=== PATIENT | female | born 1935 | race Caucasian/White ===

== ENCOUNTER 2017-08-18 21:17 | Emergency (ER) | payer OTHER ==
[~2017-08-18] VITALS: Ht 152.4 cm; Wt 74.8 kg
[2017-08-18] MEDS ORDERED: IBUPROFEN TAB 600MG (22:16)
[2017-08-18] MEDS ORDERED: AMLODIPINE TAB 5MG (22:16)
[2017-08-18] MEDS ORDERED: METFORMIN 850 MG (22:16)
[2017-08-18] MEDS ORDERED: GABAPENTIN CAP 300MG (22:16)
[2017-08-18] MEDS ORDERED: GLIMEPIRIDE 2 MG (22:16)
[2017-08-18] MEDS ORDERED: PIOGLITAZONE 15 MG (22:16)
--- NOTE | 2017-08-18 22:45 | NUR ---
at pt bedside for MSE
[2017-08-18] MEDS ORDERED: HYDROCODONE/APAP 5-325MG TABLET PO ONE (23:00)
[2017-08-18] MEDS ORDERED: HYDROCODONE/APAP 5-325MG TABLET ONE (23:26)
--- NOTE | 2017-08-18 23:40 | NUR ---
Pt offered a wheelchair assistance. Pts son declined, but will ambulate w/ own cane
--- NOTE | 2017-08-18 23:45 | NUR ---
Pt ambulated out of ER w/ steady gait. Son assisting. No distess noted, VSS
--- NOTE | 2017-08-18 23:45 | NUR ---
Patient discharged to home in stable conditon. Written and verbal after care instructions given. Patient and son verbalize understanding of instructions.
[2017-08-18 23:53] VITALS: BP 153/78
== END 2017-08-18 23:58 | disposition home or self-care (01) ==
LOC: ER 21:18
DX: S92.501A Displaced unspecified fracture of right lesser toe(s), initial encounter for closed fracture (principal); E11.9 Type 2 diabetes mellitus without complications; M19.90 Unspecified osteoarthritis, unspecified site; Z79.84 Long term (current) use of oral hypoglycemic drugs; W18.30XA Fall on same level, unspecified, initial encounter; Y93.89 Activity, other specified; Y92.89 Other specified places as the place of occurrence of the external cause; Y99.8 Other external cause status
CPT/HCPCS: 73630; A4663

== ENCOUNTER 2017-10-22 20:22 | Emergency (ER) | payer OTHER ==
[~2017-10-22] VITALS: Ht 157.5 cm; Wt 77.1 kg
[~2017-10-22 20:22] MED LIST: AMLODIPINE TAB 5MG; GABAPENTIN CAP 300MG; GLIMEPIRIDE 2 MG; IBUPROFEN TAB 600MG; METFORMIN 850 MG; PIOGLITAZONE 15 MG
[2017-10-22] MEDS ORDERED: CLINDAMYCIN 300 MG (20:39)
[2017-10-22] MEDS ORDERED: IV NORMAL SALINE 500 ML BAG IV ONE (21:00)
--- NOTE | 2017-10-22 21:16 | NUR ---
PATIENT OUT OF UNIT FOR CT SCAN VIA GURNY
[2017-10-22 21:25] LABS: BASOPHILS # (AUTO) 0.1 K/uL (0.0-8.0); BASOPHILS % (AUTO) 1.5 % (0.0-2.0); CARBON DIOXIDE 24 mmol/L (21-32); CHLORIDE 105 mmol/L (98-107); EOSINOPHILS # (AUTO) 0.2 K/uL (0.0-0.7); GLUCOSE 100 mg/dL (74-106); HEMATOCRIT 32.7 % (31.2-41.9); LYMPHOCYTES # (AUTO) 1.6 K/uL (20.0-40.0); LYMPHOCYTES % (AUTO) 20.9 % (20.5-51.5); MEAN CORPUSCULAR HEMOGLOBIN 28.4 uug (24.7-32.8); MEAN CORPUSCULAR HGB CONC 34 g/dL (32.3-35.6); MEAN CORPUSCULAR VOLUME 84.5 fL (75.5-95.3); MONOCYTES # (AUTO) 0.6 K/uL (2.0-10.0); MONOCYTES % (AUTO) 7.3 % (0.0-11.0); NEUTROPHILS # (AUTO) 5.2 K/uL (1.8-8.9); NEUTROPHILS % (AUTO) 68.3 % (38.5-71.5); PLATELET COUNT (AUTO) 424 K/uL (179-408); POTASSIUM 4.8 mmol/L (3.5-5.1); RED BLOOD CELL COUNT(AUTO) 3.87 MIL/uL (3.63-4.92); UREA NITROGEN, BLOOD 31 mg/dL (7-18); WHITE BLOOD COUNT (AUTO) 7.6 K/uL (3.8-11.8)
[2017-10-22 21:31] LABS: ALANINE AMINOTRANSFERASE 17 U/L (14-59); ALKALINE PHOSPHATASE 74 U/L (50-136); ASPARTATE AMINOTRANSFERASE 14 U/L (15-37); BILIRUBIN,DIRECT 0.1 mg/dL (0.0-0.2); BILIRUBIN,TOTAL 0.3 mg/dL (0.2-1.0); LIPASE 233 U/L (73-393); TOTAL PROTEIN, SERUM 7.6 g/dL (6.4-8.2)
--- NOTE | 2017-10-22 21:33 | NUR ---
PATIENT BACK FROM CT SCAN WITH NO DISTRESS NOTED
[2017-10-22] MEDS ORDERED: MAGNESIUM HYDROXIDE 30 ML LIQUID UDC PO ONE (22:15)
[2017-10-22] MEDS ORDERED: MAGNESIUM CITRATE 296 ML BOTTLE PO ONE (22:15)
[2017-10-22] MEDS ORDERED: MAGNESIUM CITRATE 296 ML BOTTLE ONE (22:16)
[2017-10-22] MEDS ORDERED: MAGNESIUM HYDROXIDE 30 ML LIQUID UDC ONE (22:16)
[2017-10-22 22:24] VITALS: BP 146/95
--- NOTE | 2017-10-22 22:24 | NUR ---
IV removed. Catheter intact and site benign. Pressure and 4x4 gauze applied to site. No bleeding noted.
--- NOTE | 2017-10-22 22:26 | NUR ---
Patient discharged to home in stable conditon WITH SON TAKING PATIENT HOME. Written and verbal after care instructions given. Patient verbalizes understanding of instructions. WALKED OUT OF ER WITH NO DISTRESS NOTED
== END 2017-10-22 22:27 | disposition home or self-care (01) ==
LOC: ER 20:32
DX: K59.00 Constipation, unspecified (principal); E11.9 Type 2 diabetes mellitus without complications; Z79.1 Long term (current) use of non-steroidal anti-inflammatories (NSAID); Z79.84 Long term (current) use of oral hypoglycemic drugs; Z79.2 Long term (current) use of antibiotics; Z79.899 Other long term (current) drug therapy
CPT/HCPCS: 36415; 70030-TC; 71045; 83690; 85025; 85730; 93005; A4663; J7030

== ENCOUNTER 2017-12-02 10:03 | Inpatient (IN) | payer OTHER ==
[~2017-12-02] VITALS: Ht 162.6 cm; Wt 71.7 kg
[~2017-12-02 10:03] MED LIST changes: +CLINDAMYCIN 300 MG
--- NOTE | 2017-12-02 10:20 | NUR ---
Dr Rabago at the bedside for MSE.
[2017-12-02] MEDS ORDERED: ONDANSETRON 4 MG/2 ML VIAL IV ONE (10:30)
[2017-12-02] MEDS ORDERED: IV NORMAL SALINE 1000 ML BAG IV ONE (10:30)
[2017-12-02] MEDS ORDERED: MECLIZINE HCL 25 MG TABLET PO ONE (10:30)
[2017-12-02 10:47] LABS: BASOPHILS # (AUTO) 0.1 K/uL (0.0-8.0); EOSINOPHILS # (AUTO) 0.1 K/uL (0.0-0.7); EOSINOPHILS % (AUTO) 1.1 % (0.0-7.0); HEMATOCRIT 34.8 % (31.2-41.9); HEMOGLOBIN 11.5 g/dL (10.9-14.3); MEAN CORPUSCULAR HGB CONC 33 g/dL (32.3-35.6); MEAN CORPUSCULAR VOLUME 84.7 fL (75.5-95.3); MONOCYTES # (AUTO) 0.5 K/uL (2.0-10.0); MONOCYTES % (AUTO) 5.5 % (0.0-11.0); NEUTROPHILS # (AUTO) 7.5 K/uL (1.8-8.9); NEUTROPHILS % (AUTO) 81.4 % (38.5-71.5); PLATELET COUNT (AUTO) 423 K/uL (179-408); RED BLOOD CELL COUNT(AUTO) 4.11 MIL/uL (3.63-4.92); WHITE BLOOD COUNT (AUTO) 9.2 K/uL (3.8-11.8)
[2017-12-02] MEDS ORDERED: ONDANSETRON 4 MG/2 ML VIAL ONE (10:47)
[2017-12-02] MEDS ORDERED: MECLIZINE HCL 25 MG TABLET ONE (10:47)
[2017-12-02] MEDS ORDERED: ACETAMINOPHEN ES 500 MG TABLET ONE (10:55)
[2017-12-02 10:58] LABS: CARBON DIOXIDE 21 mmol/L (21-32); CHLORIDE 104 mmol/L (98-107); CREATININE 1.3 mg/dL (0.6-1.3); GLUCOSE 229 mg/dL (74-106); POTASSIUM 4.4 mmol/L (3.5-5.1); UREA NITROGEN, BLOOD 35 mg/dL (7-18)
[2017-12-02] MEDS ORDERED: ACETAMINOPHEN ES 500 MG TABLET PO ONE (11:00)
[2017-12-02 11:03] LABS: ALANINE AMINOTRANSFERASE 15 U/L (14-59); ALKALINE PHOSPHATASE 73 U/L (50-136); ASPARTATE AMINOTRANSFERASE 14 U/L (15-37); BILIRUBIN,DIRECT 0.1 mg/dL (0.0-0.2); BILIRUBIN,TOTAL 0.3 mg/dL (0.2-1.0); TOTAL PROTEIN, SERUM 7.1 g/dL (6.4-8.2)
--- NOTE | 2017-12-02 11:06 | NUR ---
Pt out of ER for Ct.
[2017-12-02 11:53] LABS: *BILIRUBIN,URIN NEGATIVE (NEGATIVE); *BLOOD, URINE NEGATIVE (NEGATIVE); *CLARITY,URINE CLEAR (CLEAR); *COLOR,URINE YELLOW (YELLOW); *KETONES,URINE NEGATIVE (NEGATIVE); *PROTEIN,URINE 1+ (NEGATIVE); *UROBILINOGEN,URINE 0.2 E.U./dl (NORMAL); LEUKOCYTE ESTERASE ,URINE NEGATIVE (NEGATIVE); NITRITE, URINE NEGATIVE (NEGATIVE); PH,URINE 5.5 (5.0-8.0); UGLUCOSE NEGATIVE (NEGATIVE)
[2017-12-02 12:12] LABS: RBC,URINE 0-3 /HPF (0-3)
[2017-12-02 12:13] LABS: BACTERIA,URINE NONE SEEN /HPF (NONE SEEN); SQUAMOUS EPITHELIAL CELL,UR FEW /HPF (NONE SEEN); TRANSITIONAL EPI CELLS,URINE FEW /LPF (NONE SEEN)
[2017-12-02] MEDS ORDERED: ASPIRIN 325 MG TABLET PO ONE (12:15)
[2017-12-02] MEDS ORDERED: IBUP-1955 PO (12:18)
[2017-12-02] MEDS ORDERED: FURO-152 PO (12:18)
[2017-12-02] MEDS ORDERED: AMLO5TAB2 PO (12:18)
[2017-12-02] MEDS ORDERED: DOCU100C36 PO (12:18)
[2017-12-02] MEDS ORDERED: GABA-534 PO (12:18)
[2017-12-02] MEDS ORDERED: HYDR-3980 PO (12:18)
[2017-12-02] MEDS ORDERED: METF850T2 PO (12:18)
[2017-12-02] MEDS ORDERED: ASPIRIN 325 MG TABLET ONE (12:37)
[2017-12-02] MEDS ORDERED: IV NS 1000 ML 1,000 ML IV PRN (14:40)
[2017-12-02] MEDS ORDERED: HYDROCODONE/APAP 5-325MG TABLET PO PRN (14:45)
[2017-12-02] MEDS ORDERED: ACETAMINOPHEN 325 MG TABLET PO PRN (14:45)
[2017-12-02] MEDS ORDERED: TEMAZEPAM 15 MG CAPSULE PO PRN (14:45)
[2017-12-02] MEDS ORDERED: MAGNESIUM HYDROXIDE 30 ML LIQUID UDC PO PRN (14:45)
[2017-12-02] MEDS ORDERED: ONDANSETRON 4 MG/2 ML VIAL IV PRN (14:45)
--- NOTE | 2017-12-02 14:48 | NUR ---
PT PULLED LT AC IV LINE, NO ACUTE BLEEDING NOTED. START A NEW SALINE LOCK ON RT WRIST.
--- NOTE | 2017-12-02 15:00 | NUR ---
Received report from ER nurse
--- NOTE | 2017-12-02 15:15 | NUR ---
Received pt from Er via jw, accompanied by VAT PACKER and her son. No apparent s/s of pain, distress, discomfort or SOB.
[2017-12-02 15:36] VITALS: BP 163/60
--- NOTE | 2017-12-02 16:00 | NUR ---
Initial general questions and initial physical assessment done with her son, Anthony by her bedside. Pt is Telugu speaking, states no pain according to her son, no immediate s/s of pain, distress, discomfort of SOB. Son states that pt is hungry and has not eaten since this morning.
[2017-12-02] MEDS ORDERED: MECLIZINE HCL 25 MG TABLET PO PRN (17:30)
[2017-12-02] MEDS ORDERED: DEXTROSE 50% 50 ML DISP.SYRIN IV PRN (17:45)
--- NOTE | 2017-12-02 19:30 | NUR ---
Received patient sleeping but easily arousable when name called. Requested to use the BR, hand held assist to the BR. No complaint presented. Continue care as planned.
[2017-12-02 20:00] VITALS: BP 104/59
[2017-12-02] MEDS: BLOOD SUGAR DIAGNOSTIC 1 EACH STRIP VI SCH (20:59)
[2017-12-02] MEDS: INSULIN REGULAR, HUMAN 300 UNIT/3 ML VIAL SQ PRN (21:00)
--- NOTE | 2017-12-02 21:01 | NUR ---
Son Anthony at bedside. Answered all questions he had and pleased with the response.
[2017-12-03] VITALS: BP 120/60
[2017-12-03 04:00] VITALS: BP 128/68
[2017-12-03] MEDS: BLOOD SUGAR DIAGNOSTIC 1 EACH STRIP VI SCH ×4 (06:02→21:54)
[2017-12-03] MEDS: PANTOPRAZOLE SODIUM 40 MG TABLET.DR PO SCH (06:03)
--- NOTE | 2017-12-03 06:38 | NUR ---
Shift end report: VS stable. Slept well. Assisted to the BR for elimination. No complaint presented. All needs attended and met. Continue current plan of care.
[2017-12-03 07:10] LABS: BASOPHILS # (AUTO) 0.1 K/uL (0.0-8.0); BASOPHILS % (AUTO) 0.6 % (0.0-2.0); EOSINOPHILS % (AUTO) 0.4 % (0.0-7.0); HEMATOCRIT 33.9 % (31.2-41.9); HEMOGLOBIN 11.2 g/dL (10.9-14.3); LYMPHOCYTES # (AUTO) 1.1 K/uL (20.0-40.0); LYMPHOCYTES % (AUTO) 10.5 % (20.5-51.5); MEAN CORPUSCULAR HEMOGLOBIN 27.7 uug (24.7-32.8); MEAN CORPUSCULAR HGB CONC 33 g/dL (32.3-35.6); MEAN CORPUSCULAR VOLUME 84.2 fL (75.5-95.3); MONOCYTES # (AUTO) 0.5 K/uL (2.0-10.0); MONOCYTES % (AUTO) 4.9 % (0.0-11.0); NEUTROPHILS # (AUTO) 8.6 K/uL (1.8-8.9); NEUTROPHILS % (AUTO) 83.6 % (38.5-71.5); PLATELET COUNT (AUTO) 376 K/uL (179-408); RED BLOOD CELL COUNT(AUTO) 4.03 MIL/uL (3.63-4.92); WHITE BLOOD COUNT (AUTO) 10.3 K/uL (3.8-11.8)
[2017-12-03 07:24] LABS: CARBON DIOXIDE 21 mmol/L (21-32); CHLORIDE 107 mmol/L (98-107); CHOLESTEROL 174 mg/dL (<200); CREATININE 0.9 mg/dL (0.6-1.3); GLUCOSE 76 mg/dL (74-106); HDL CHOLESTEROL 62 mg/dL (40-60); MAGNESIUM 1.7 mg/dL (1.8-2.4); POTASSIUM 5.1 mmol/L (3.5-5.1); TRIGLYCERIDES 76 MG/DL (30-150); UREA NITROGEN, BLOOD 27 mg/dL (7-18)
--- NOTE | 2017-12-03 08:30 | NUR ---
SEEN AND EXAMINED BY [employer] BANK OFFICER WITH NEW ORDERS. PT IS AWAKE AND ALERT. YI SPEAKING ONLY. ABLE TO AMBULATE SLOWLY TO BATHROOM USING HER CANE. DENIES DIZZINESS AT THIS TIME. NO C/O RAMIREZ.
--- NOTE | 2017-12-03 11:30 | NUR ---
PT AMBULATED WITH PT USING A WALKER. TOLERATED WELL.
[2017-12-03 11:49] VITALS: BP 148/59
[2017-12-03] MEDS ORDERED: MAGNESIUM OXIDE 400 MG TABLET PO ONE (12:15)
--- NOTE | 2017-12-03 13:00 | NUR ---
SEEN AND EXAMINED BY DR SUAREZ WITH NEW ORDER.
[2017-12-03 15:39] VITALS: BP 157/63
--- NOTE | 2017-12-03 17:00 | NUR ---
FAMILY AT THE BEDSIDE. PT EATING GOOD. MEDICATED WITH STOOL SOFTER FOR C/O CONSTIPATION ORDERED.
[2017-12-03] MEDS: DOCUSATE SODIUM 100 MG CAPSULE PO SCH (18:03)
[2017-12-03] MEDS: ASPIRIN EC 81 MG TABLET.DR PO SCH (18:03)
[2017-12-03] MEDS: INSULIN REGULAR, HUMAN 300 UNIT/3 ML VIAL SQ PRN (18:07)
--- NOTE | 2017-12-03 19:50 | NUR ---
RECEIVED PATIENT IN BED, ALERT NO SOB NO CHEST PAIN NOTED, ASSISTED WITH TOILETING, CONT TO MONITOR.
[2017-12-03 20:23] VITALS: BP 142/55
[2017-12-03] MEDS: AMLODIPINE 5 MG TABLET PO SCH (21:59)
[2017-12-04] VITALS: BP 130/63
[2017-12-04 04:00] VITALS: BP 160/70
[2017-12-04] MEDS: BLOOD SUGAR DIAGNOSTIC 1 EACH STRIP VI SCH ×4 (06:19→20:24)
[2017-12-04] MEDS: PANTOPRAZOLE SODIUM 40 MG TABLET.DR PO SCH (06:25)
--- NOTE | 2017-12-04 06:30 | NUR ---
PATIENT SLEPT MOST OF THE NIGHT, NO COMPLAIN OF PAIN, NO SOB NO CHEST PAIN, RYTHM SINUS RYTHM, ASSITED WITH TOILETING, CALL LIGHT WITHIN REACH, BLOOD SUGAR 55, ASYMPTOMATIC, GIVEN 1/2 CUP OF ORANGE JUICE, TURN AND REPOSITION.
[2017-12-04 06:34] LABS: CARBON DIOXIDE 22 mmol/L (21-32); CHLORIDE 105 mmol/L (98-107); CREATININE 0.9 mg/dL (0.6-1.3); GLUCOSE 79 mg/dL (74-106); MAGNESIUM 1.8 mg/dL (1.8-2.4); POTASSIUM 4.4 mmol/L (3.5-5.1); UREA NITROGEN, BLOOD 24 mg/dL (7-18)
[2017-12-04 06:43] LABS: RED BLOOD CELL COUNT(AUTO) 4.01 MIL/UL (4.2-5.4); WHITE BLOOD COUNT (AUTO) 10.2 K/UL (4.0-11.2)
[2017-12-04 06:44] LABS: HEMATOCRIT 34.1 % (37-47); HEMOGLOBIN 11.2 G/DL (12.0-16.0); MEAN CORPUSCULAR HEMOGLOBIN 27.9 UUG (27.0-31.0); MEAN CORPUSCULAR HGB CONC 33 g/dL (32.0-37.0); PLATELET COUNT (AUTO) 378 K/UL (150-450)
[2017-12-04 06:45] LABS: BASOPHILS # (AUTO) 0.1 K/uL (0.0-8.0); EOSINOPHILS # (AUTO) 0.2 K/uL (0.0-0.7); EOSINOPHILS % (AUTO) 1.8 % (0.0-7.0); LYMPHOCYTES # (AUTO) 1.5 K/UL (0.8-4.8); LYMPHOCYTES % (AUTO) 14.7 % (20.5-51.5); MONOCYTES # (AUTO) 0.5 K/UL (0.1-1.30); NEUTROPHILS # (AUTO) 7.9 K/UL (1.8-8.9); NEUTROPHILS % (AUTO) 77.5 % (38.5-71.5)
--- NOTE | 2017-12-04 08:00 | NUR ---
AWAKE COOPERATE SOME FORGETFUL BUT ABLE TO FOLLOW SIMPLE DIRECTION WELL NO SOB OR PAIN CALL SCHMIDT IN REACH AND BED ALARM ON
[2017-12-04] MEDS: DOCUSATE SODIUM 100 MG CAPSULE PO SCH ×3 (08:31→16:33)
[2017-12-04] MEDS: AMLODIPINE 5 MG TABLET PO SCH (08:32)
[2017-12-04] MEDS: GABAPENTIN 300 MG CAPSULE PO SCH ×2 (08:33→16:33)
[2017-12-04] MEDS: ASPIRIN EC 81 MG TABLET.DR PO SCH (08:36)
--- NOTE | 2017-12-04 10:00 | NUR ---
FAMILY AT BED SIDE C/O OF CONSTIPATION MOM PO GIVEN ORDER
[2017-12-04 11:00] VITALS: BP 160/75
[2017-12-04] MEDS ORDERED: METOPROLOL TARTRATE 25 MG TABLET PO SCH (11:30)
[2017-12-04] MEDS ORDERED: LOSARTAN POTASSIUM 25 MG TABLET PO SCH (12:30)
[2017-12-04 15:05] VITALS: BP 140/68
[2017-12-04] MEDS: INSULIN REGULAR, HUMAN 300 UNIT/3 ML VIAL SQ PRN ×2 (16:36→20:26)
--- NOTE | 2017-12-04 17:00 | NUR ---
PATIENT WILL D/C TO [facility]ANCE TODAY PER DRILL SETUP OPERATOR DR VALENZUELA WAS CALL FOR ORDER ,PATIENT C/O OF CONSTIPATION MOM DOES NOT WORKING AND MESSAGE LEFT
--- NOTE | 2017-12-04 17:30 | NUR ---
HEMODYNAMIC STATUS STABLE ,PAIN UNDER CONTROL NO DIZZINESS AT THIS TIME EAT WELL SAFETY MEASURE PROVIDED CALL LIGHT IN REACH AND BED ALARM ON
--- NOTE | 2017-12-04 18:00 | NUR ---
HAVE 1 SOFT BM THIS EVENING STATE FEEL BETTER
[2017-12-04] MEDS ORDERED: LOSA25TA3 PO (18:45)
[2017-12-04] MEDS ORDERED: HYDR-3326 PO (18:45)
[2017-12-04] MEDS ORDERED: ASPI-618 PO (18:45)
[2017-12-04] MEDS ORDERED: ACET325T53 PO (18:45)
[2017-12-04] MEDS ORDERED: MECL-102 PO (18:45)
[2017-12-04] MEDS ORDERED: MULT1TAB73 PO (18:45)
[2017-12-04] MEDS ORDERED: MAGN400O6 PO (18:45)
[2017-12-04] MEDS ORDERED: PANT40TA2 PO (18:45)
[2017-12-04] MEDS ORDERED: SIMV10TA2 PO (18:57)
--- NOTE | 2017-12-04 19:00 | NUR ---
RECEIVED PATIENT IN BED, ALERT ORIENTED, SPEAK AZERI, BUT UNDERSTAND BASIC HUNGARIAN. NO COMPLAIN OF PAIN NOR DISCOMFORT, ASSISTED WITH TOILETING, PREPARED PATIENT FOR DISCHARGE, PATIENT HAS HER OWN TEETH, NO DENTURES. CONT TO MONITOR.
[2017-12-04 20:00] VITALS: BP 156/72
--- NOTE | 2017-12-04 22:56 | NUR ---
[facility]ETH [facility] CALLED, AND SAID THAT PATIENT WILL BE GOING TO [facility], SHE ALSO MENTIONED THAT SHE GOING TO NOTIFY PATIENT SON'S THAT PATIENT PATIENT IS GOING TO [facility]. CALLED [facility] AND SPOKE TO BOBBY HENAO AND GAVE REPORT.
--- NOTE | 2017-12-04 23:03 | NUR ---
PLACE A CALL TO PATIENT SON RUBEN BUT NO ANSWER, [facility] CALL BACK NUMBER.
--- NOTE | 2017-12-04 23:06 | NUR ---
BETH FROM [facility] SAID THAT [facility] WILL TRANSPORT PATIENT TO [facility].
--- NOTE | 2017-12-05 00:30 | NUR ---
PATIENT WAS PICKED UP BY [facility], GAVE REPORT AND PAPER WORKS, PATIENT TOOK ALL HER BELONGINGS. PATIENT IN FAIR AND STABLE CONDITION.
== END 2017-12-05 00:30 | DRG 102 ==
LOC: ER 10:03 → TELE 14:26 → MED 12-04 17:55
PROVIDERS: ADMIT Nurse Practitioner Acute Care; ATTEND Nurse Practitioner Acute Care
DX: F07.81 Postconcussional syndrome (principal); N17.0 Acute kidney failure with tubular necrosis; E44.0 Moderate protein-calorie malnutrition; M48.02 Spinal stenosis, cervical region; E11.42 Type 2 diabetes mellitus with diabetic polyneuropathy; E83.42 Hypomagnesemia; G30.9 Alzheimer's disease, unspecified; F02.80 Dementia in other diseases classified elsewhere, unspecified severity, without behavioral disturbance, psychotic disturbance, mood disturbance, and anxiety; E78.5 Hyperlipidemia, unspecified; G44.309 Post-traumatic headache, unspecified, not intractable; T14.90XS Injury, unspecified, sequela; W18.30XS Fall on same level, unspecified, sequela; M50.30 Other cervical disc degeneration, unspecified cervical region; Z68.27 Body mass index [BMI] 27.0-27.9, adult; Z98.42 Cataract extraction status, left eye; E66.9 Obesity, unspecified; Z79.84 Long term (current) use of oral hypoglycemic drugs; M19.90 Unspecified osteoarthritis, unspecified site; I35.0 Nonrheumatic aortic (valve) stenosis; D32.9 Benign neoplasm of meninges, unspecified; I11.9 Hypertensive heart disease without heart failure; E05.90 Thyrotoxicosis, unspecified without thyrotoxic crisis or storm; Z96.653 Presence of artificial knee joint, bilateral; E86.0 Dehydration
CPT/HCPCS: 36415; 70030-TC; 70450; 71045; 72125; 83735; 84100; 84443; 85025; 85730; 92610; 93005; 93307; 97116; 97530; A4663; A9150; J1815; J2405; J7030; J8597

== ENCOUNTER 2018-01-15 18:24 | Emergency (ER) | payer OTHER ==
[~2018-01-15] VITALS: Ht 160 cm; Wt 78.0 kg
[~2018-01-15 18:24] MED LIST changes: +ACET325T53 PO; +AMLO5TAB2 PO; -AMLODIPINE TAB 5MG; +ASPI-618 PO; -CLINDAMYCIN 300 MG; +DOCU100C36 PO; +FURO-152 PO; +GABA-534 PO; -GABAPENTIN CAP 300MG; -GLIMEPIRIDE 2 MG; +HYDR-3326 PO; -IBUPROFEN TAB 600MG; +LOSA25TA3 PO; +MAGN400O6 PO; +MECL-102 PO; -METFORMIN 850 MG; +MULT1TAB73 PO; +PANT40TA2 PO; -PIOGLITAZONE 15 MG; +SIMV10TA2 PO
--- NOTE | 2018-01-15 19:08 | NUR ---
Patient discharged to home in stable conditon. Written and verbal after care instructions given. Patient verbalizes understanding of instructions.pt walks in steady gait. pt with son who is providing translation from upper sorbian into wolof
== END 2018-01-15 19:12 | disposition home or self-care (01) ==
LOC: ER 18:25
DX: M72.2 Plantar fascial fibromatosis (principal); E78.5 Hyperlipidemia, unspecified; E11.9 Type 2 diabetes mellitus without complications; Z79.891 Long term (current) use of opiate analgesic; Z79.82 Long term (current) use of aspirin; Z79.899 Other long term (current) drug therapy
CPT/HCPCS: A4663

== ENCOUNTER 2018-10-15 12:30 | Emergency (ER) | payer OTHER ==
[~2018-10-15] VITALS: Ht 160 cm; Wt 79.4 kg
[~2018-10-15 12:30] MED LIST changes: -AMLO5TAB2 PO; +AMLO5TAB9 PO
[2018-10-15] MEDS ORDERED: MECL12.582 PO (13:09)
[2018-10-15] MEDS ORDERED: LOSA25TA27 PO (13:09)
[2018-10-15] MEDS ORDERED: SIMV10TA2 PO (13:09)
[2018-10-15] MEDS ORDERED: BISA10SU8 RC (13:09)
[2018-10-15] MEDS ORDERED: ACET325T53 PO (13:09)
[2018-10-15] MEDS ORDERED: PANT40TA4 PO (13:09)
[2018-10-15] MEDS ORDERED: MULT1TAB73 PO (13:09)
--- NOTE | 2018-10-15 13:12 | NUR ---
PT IS IN ROOM #2B. DR UNDERWOOD EVALUATED THE PT.
[2018-10-15 13:39] LABS: BASOPHILS # (AUTO) 0.1 K/uL (0.0-8.0); BASOPHILS % (AUTO) 1.4 % (0.0-2.0); EOSINOPHILS # (AUTO) 0.1 K/uL (0.0-0.7); EOSINOPHILS % (AUTO) 0.8 % (0.0-7.0); HEMATOCRIT 34.8 % (31.2-41.9); HEMOGLOBIN 11.2 g/dL (10.9-14.3); LYMPHOCYTES # (AUTO) 1.3 K/uL (20.0-40.0); LYMPHOCYTES % (AUTO) 12.5 % (20.5-51.5); MEAN CORPUSCULAR HEMOGLOBIN 27.4 uug (24.7-32.8); MEAN CORPUSCULAR HGB CONC 32 g/dL (32.3-35.6); MEAN CORPUSCULAR VOLUME 84.8 fL (75.5-95.3); MONOCYTES # (AUTO) 0.6 K/uL (2.0-10.0); MONOCYTES % (AUTO) 5.4 % (0.0-11.0); NEUTROPHILS # (AUTO) 8.3 K/uL (1.8-8.9); NEUTROPHILS % (AUTO) 79.9 % (38.5-71.5); PLATELET COUNT (AUTO) 449 K/uL (179-408); RED BLOOD CELL COUNT(AUTO) 4.11 MIL/uL (3.63-4.92); WHITE BLOOD COUNT (AUTO) 10.4 K/uL (3.8-11.8)
[2018-10-15 13:49] LABS: CARBON DIOXIDE 19 mmol/L (21-32); CHLORIDE 105 mmol/L (98-107); CREATININE 1.2 mg/dL (0.6-1.3); GLUCOSE 167 mg/dL (74-106); POTASSIUM 4.6 mmol/L (3.5-5.1); UREA NITROGEN, BLOOD 32 mg/dL (7-18)
[2018-10-15 13:54] LABS: ALANINE AMINOTRANSFERASE 13 U/L (14-59); ALKALINE PHOSPHATASE 76 U/L (50-136); ASPARTATE AMINOTRANSFERASE 16 U/L (15-37); BILIRUBIN,DIRECT < 0.1 mg/dL (0.0-0.2); BILIRUBIN,TOTAL 0.2 mg/dL (0.2-1.0); LIPASE 170 U/L (73-393); TOTAL PROTEIN, SERUM 7.6 g/dL (6.4-8.2)
--- NOTE | 2018-10-15 15:12 | NUR ---
PT WAS D/C'd TO HOME. D/C INSTRUCTIONS GIVEN TO THE PT AND TO HER SON.
[2018-10-15 15:14] VITALS: BP 139/87
== END 2018-10-15 15:14 | disposition home or self-care (01) ==
LOC: ER 12:32
DX: K52.9 Noninfective gastroenteritis and colitis, unspecified (principal); K46.9 Unspecified abdominal hernia without obstruction or gangrene; K80.20 Calculus of gallbladder without cholecystitis without obstruction; R91.1 Solitary pulmonary nodule; E78.5 Hyperlipidemia, unspecified; E11.9 Type 2 diabetes mellitus without complications; Z79.899 Other long term (current) drug therapy; Z79.82 Long term (current) use of aspirin
CPT/HCPCS: 36415; 83690; 85025; A4663

== ENCOUNTER 2019-12-01 18:36 | Emergency (ER) | payer OTHER ==
[~2019-12-01] VITALS: Ht 160 cm; Wt 67.6 kg
[~2019-12-01 18:36] MED LIST changes: -ASPI-618 PO; +BISA10SU95 RC; -DOCU100C36 PO; -GABA-534 PO; -HYDR-3326 PO; +LOSA25TA27 PO; -LOSA25TA3 PO; -MAGN400O6 PO; -MECL-102 PO; +MECL-182 PO; -PANT40TA2 PO; +PANT40TA4 PO
[2019-12-01 19:10] LABS: BASOPHILS # (AUTO) 0.1 K/uL (0.0-8.0); BASOPHILS % (AUTO) 1.2 % (0.0-2.0); EOSINOPHILS # (AUTO) 0.1 K/uL (0.0-0.7); EOSINOPHILS % (AUTO) 1.2 % (0.0-7.0); HEMATOCRIT 32.1 % (31.2-41.9); HEMOGLOBIN 10.6 g/dL (10.9-14.3); LYMPHOCYTES # (AUTO) 1.5 K/uL (20.0-40.0); LYMPHOCYTES % (AUTO) 13.7 % (20.5-51.5); MEAN CORPUSCULAR HEMOGLOBIN 26.6 uug (24.7-32.8); MEAN CORPUSCULAR HGB CONC 33 g/dL (32.3-35.6); MEAN CORPUSCULAR VOLUME 80.6 fL (75.5-95.3); MONOCYTES # (AUTO) 0.7 K/uL (2.0-10.0); MONOCYTES % (AUTO) 6.5 % (0.0-11.0); NEUTROPHILS # (AUTO) 8.4 K/uL (1.8-8.9); NEUTROPHILS % (AUTO) 77.4 % (38.5-71.5); PLATELET COUNT (AUTO) 629 K/uL (179-408); RED BLOOD CELL COUNT(AUTO) 3.99 MIL/uL (3.63-4.92); WHITE BLOOD COUNT (AUTO) 10.9 K/uL (3.8-11.8)
--- NOTE | 2019-12-01 19:10 | NUR ---
REPORT TAKEN FROM DAY NURSE FABIO.
[2019-12-01 19:23] LABS: ALANINE AMINOTRANSFERASE 14 U/L (14-59); ALKALINE PHOSPHATASE 66 U/L (50-136); ASPARTATE AMINOTRANSFERASE 18 U/L (15-37); BILIRUBIN,DIRECT 0.1 mg/dL (0.0-0.2); BILIRUBIN,TOTAL 0.2 mg/dL (0.2-1.0); CARBON DIOXIDE 23 mmol/L (21-32); CHLORIDE 106 mmol/L (98-107); GLUCOSE 112 mg/dL (74-106); LIPASE 233 U/L (73-393); POTASSIUM 4.6 mmol/L (3.5-5.1); TOTAL PROTEIN, SERUM 7.5 g/dL (6.4-8.2); UREA NITROGEN, BLOOD 45 mg/dL (7-18)
[2019-12-01 21:20] VITALS: BP 135/71
--- NOTE | 2019-12-01 21:20 | NUR ---
Patient discharged to home in stable condition. Written and verbal after care instructions given. Patient and son verbalizes understanding of instructions. Stressed follow up or return to ER for worsening s/s.
== END 2019-12-01 21:20 | disposition home or self-care (01) ==
LOC: ER 18:39
DX: R10.10 Upper abdominal pain, unspecified (principal); K44.9 Diaphragmatic hernia without obstruction or gangrene; K80.20 Calculus of gallbladder without cholecystitis without obstruction; K57.30 Diverticulosis of large intestine without perforation or abscess without bleeding; K76.89 Other specified diseases of liver; N28.9 Disorder of kidney and ureter, unspecified; G30.9 Alzheimer's disease, unspecified; F02.80 Dementia in other diseases classified elsewhere, unspecified severity, without behavioral disturbance, psychotic disturbance, mood disturbance, and anxiety; E78.5 Hyperlipidemia, unspecified; Z96.653 Presence of artificial knee joint, bilateral; E11.40 Type 2 diabetes mellitus with diabetic neuropathy, unspecified; Z79.899 Other long term (current) drug therapy; I51.7 Cardiomegaly
CPT/HCPCS: 36415; 70030-TC; 71045; 83690; 85025; 85730; 93005; A4663

== ENCOUNTER 2019-12-11 13:34 | Emergency (ER) | payer OTHER ==
[~2019-12-11] VITALS: Ht 160 cm; Wt 68.0 kg
--- NOTE | 2019-12-11 13:44 | NUR ---
PT IS IN ROOM #2B. DR MORAN EVALUATED THEPT.
[2019-12-11] MEDS ORDERED: HYDROCODONE/APAP 10-325 MG TABLET PO ONE (14:00)
[2019-12-11] MEDS ORDERED: HYDROCODONE/APAP 10-325 MG TABLET ONE (14:10)
[2019-12-11 14:18] LABS: BASOPHILS # (AUTO) 0.1 K/uL (0.0-8.0); EOSINOPHILS # (AUTO) 0.1 K/uL (0.0-0.7); EOSINOPHILS % (AUTO) 1.2 % (0.0-7.0); HEMATOCRIT 31.9 % (31.2-41.9); HEMOGLOBIN 10.3 g/dL (10.9-14.3); LYMPHOCYTES # (AUTO) 1.1 K/uL (20.0-40.0); LYMPHOCYTES % (AUTO) 9.5 % (20.5-51.5); MEAN CORPUSCULAR HEMOGLOBIN 26.7 uug (24.7-32.8); MEAN CORPUSCULAR HGB CONC 32 g/dL (32.3-35.6); MEAN CORPUSCULAR VOLUME 82.6 fL (75.5-95.3); MONOCYTES # (AUTO) 0.7 K/uL (2.0-10.0); MONOCYTES % (AUTO) 5.6 % (0.0-11.0); NEUTROPHILS # (AUTO) 9.8 K/uL (1.8-8.9); NEUTROPHILS % (AUTO) 82.7 % (38.5-71.5); PLATELET COUNT (AUTO) 440 K/uL (179-408); RED BLOOD CELL COUNT(AUTO) 3.87 MIL/uL (3.63-4.92); WHITE BLOOD COUNT (AUTO) 11.8 K/uL (3.8-11.8)
[2019-12-11 14:22] LABS: CREATININE 1.2 mg/dL (0.6-1.3); POTASSIUM 4.6 mmol/L (3.5-5.1)
[2019-12-11 14:34] LABS: ALANINE AMINOTRANSFERASE 11 U/L (14-59); ALKALINE PHOSPHATASE 63 U/L (50-136); ASPARTATE AMINOTRANSFERASE 11 U/L (15-37); BILIRUBIN,DIRECT < 0.1 mg/dL (0.0-0.2); BILIRUBIN,TOTAL 0.2 mg/dL (0.2-1.0)
--- NOTE | 2019-12-11 15:08 | NUR ---
PT WAS D/C'd TO HOME. D/C INSTRUCTIONS GIVEN TO THE PT AND TO HER SON.
[2019-12-11 15:10] VITALS: BP 149/78
== END 2019-12-11 15:13 | disposition home or self-care (01) ==
LOC: ER 13:34
PROC: 2W3KX1Z Immobilization of Left Finger using Splint (ICD-10-PCS; principal; 2019-12-11)
DX: S69.92XA Unspecified injury of left wrist, hand and finger(s), initial encounter (principal); W18.30XA Fall on same level, unspecified, initial encounter; Y92.89 Other specified places as the place of occurrence of the external cause; R42 Dizziness and giddiness; I44.0 Atrioventricular block, first degree; Z96.653 Presence of artificial knee joint, bilateral; G30.9 Alzheimer's disease, unspecified; F02.80 Dementia in other diseases classified elsewhere, unspecified severity, without behavioral disturbance, psychotic disturbance, mood disturbance, and anxiety; E78.5 Hyperlipidemia, unspecified; E11.40 Type 2 diabetes mellitus with diabetic neuropathy, unspecified
CPT/HCPCS: 36415; 70030-TC; 71045; 73130; 85025; 93005; A4663

== ENCOUNTER 2020-02-05 12:03 | Inpatient (IN) | payer OTHER ==
[~2020-02-05] VITALS: Ht 157.5 cm; Wt 59.6 kg
[~2020-02-05 12:03] MED LIST changes: +MULT-594 PO; -MULT1TAB73 PO
--- NOTE | 2020-02-05 12:33 | NUR ---
at bedside to examine patient.
--- NOTE | 2020-02-05 12:35 | NUR ---
Per pt's son, none of the medication of pt changed from previous admit.
[2020-02-05 13:16] LABS: BASOPHILS # (AUTO) 0.1 K/uL (0.0-8.0); BASOPHILS % (AUTO) 1.1 % (0.0-2.0); EOSINOPHILS % (AUTO) 0.2 % (0.0-7.0); HEMATOCRIT 36.4 % (31.2-41.9); HEMOGLOBIN 11.6 g/dL (10.9-14.3); LYMPHOCYTES # (AUTO) 1.1 K/uL (20.0-40.0); LYMPHOCYTES % (AUTO) 18.6 % (20.5-51.5); MEAN CORPUSCULAR HEMOGLOBIN 26.2 uug (24.7-32.8); MEAN CORPUSCULAR HGB CONC 32 g/dL (32.3-35.6); MEAN CORPUSCULAR VOLUME 82.1 fL (75.5-95.3); MONOCYTES # (AUTO) 0.6 K/uL (2.0-10.0); MONOCYTES % (AUTO) 10.8 % (0.0-11.0); NEUTROPHILS # (AUTO) 4.1 K/uL (1.8-8.9); NEUTROPHILS % (AUTO) 69.3 % (38.5-71.5); PLATELET COUNT (AUTO) 334 K/uL (179-408); RED BLOOD CELL COUNT(AUTO) 4.43 MIL/uL (3.63-4.92); WHITE BLOOD COUNT (AUTO) 5.9 K/uL (3.8-11.8)
[2020-02-05 13:22] LABS: CARBON DIOXIDE 18 mmol/L (21-32); CHLORIDE 103 mmol/L (98-107); CREATININE 1.6 mg/dL (0.6-1.3); GLUCOSE 258 mg/dL (74-106); POTASSIUM 4.3 mmol/L (3.5-5.1); UREA NITROGEN, BLOOD 40 mg/dL (7-18)
[2020-02-05 13:39] LABS: ALANINE AMINOTRANSFERASE 16 U/L (14-59); ALKALINE PHOSPHATASE 64 U/L (50-136); ASPARTATE AMINOTRANSFERASE 24 U/L (15-37); BILIRUBIN,TOTAL 0.1 mg/dL (0.2-1.0); FERRITIN 108 ng/mL (8-252); LACTATE DEHYDROGENASE 223 U/L (81-234); TOTAL PROTEIN, SERUM 7.4 g/dL (6.4-8.2)
[2020-02-05] MEDS ORDERED: CEFTRIAXONE 1 G in IV DEXTROSE 5% 50 ML IV ONE (13:45)
[2020-02-05] MEDS ORDERED: IV NS 1000 ML 1,000 ML IV ONE (13:45)
[2020-02-05 13:48] LABS: LIPASE 320 U/L (73-393)
[2020-02-05] MEDS ORDERED: CEFTRIAXONE 1 G VIAL ONE (13:56)
[2020-02-05] MEDS ORDERED: CEFTRIAXONE /D5W 50ML IVPB **ER PYXIS IV ONE (13:57)
--- NOTE | 2020-02-05 14:49 | NUR ---
a call back from [facility] Dr. Jose Paredes to Dr. nino.
--- NOTE | 2020-02-05 15:27 | NUR ---
Patient will taken to room 314. AAOx1-3. vitals stable 149/74 hr 88 sat 98% on RA.
[2020-02-05] MEDS ORDERED: HYDROCODONE/APAP 5-325MG TABLET PO PRN (15:30)
[2020-02-05] MEDS ORDERED: BISACODYL 10 MG SUPP.RECT RC PRN (15:30)
[2020-02-05] MEDS ORDERED: ONDANSETRON 4 MG/2 ML VIAL IV PRN (15:30)
[2020-02-05] MEDS ORDERED: Z GUARD REMEDY PASTE 57 GM TUBE TOP PRN (15:30)
[2020-02-05] MEDS ORDERED: MAGNESIUM HYDROXIDE 30 ML LIQUID UDC PO PRN (15:30)
[2020-02-05] MEDS ORDERED: MECLIZINE HCL 12.5 MG TABLET PO PRN (15:30)
--- NOTE | 2020-02-05 15:40 | NUR ---
Admitted pt from ER, transferred via wheelchair. [place]-speaking. On RA with no SOB or distress noted at this time. Telemetry applied, SR on monitor. Reinserted IV on R FA 22g flushed and patent. Able to ambulate to bathroom with cane and assistance. Oriented to room, call light and phone within reach. Bed locked in lowest position with siderails 2x up. Will monitor
[2020-02-05 16:14] VITALS: BP 142/53
--- NOTE | 2020-02-05 19:20 | NUR ---
Received patient inside her room. AAOx1-2, Italian speaking only. In no acute distress. No signs and symptoms of pain or SOB. IV site noted to be out with minimal bleeding noted on IV site. Started a new IV site on left hand #22G. NSR on tele at 81/min. Safety measure initiated and call ventura within reached.
--- NOTE | 2020-02-05 19:45 | NUR ---
Call from lab/Ric Lactic Acid 2.9. MANAGER GARDEN Pogosyan into visit and made aware. No new order at this time.
[2020-02-05] MEDS: SIMVASTATIN 10 MG TABLET PO SCH (21:00)
[2020-02-05] MEDS: ZOLPIDEM 5 MG TABLET PO PRN (21:00)
--- NOTE | 2020-02-05 21:00 | NUR ---
Patient pulled out her IV line. Started new IV line on right hand #22G.
[2020-02-06] VITALS: BP 129/59
[2020-02-06 04:18] VITALS: BP 140/70
--- NOTE | 2020-02-06 06:21 | NUR ---
AAOx1-2. Slept well last night. In no acute distress. No signs and symptoms of pain or SOB. NSR on tele at 76/min. Droplet and contact precaution maintained. Safety measure maintained and call ventura within reached.
--- NOTE | 2020-02-06 07:00 | NUR ---
Patient pulled out IV again. Started new IV line on left AC #22G.
[2020-02-06] MEDS: PANTOPRAZOLE SODIUM 40 MG TABLET.DR PO SCH (08:18)
[2020-02-06] MEDS: MULTIVITAMINS,THERAPEUTIC TABLET PO SCH (08:18)
[2020-02-06 08:21] LABS: BASOPHILS % (AUTO) 0.8 % (0.0-2.0); EOSINOPHILS # (AUTO) 0.1 K/uL (0.0-0.7); EOSINOPHILS % (AUTO) 0.9 % (0.0-7.0); HEMATOCRIT 34.6 % (31.2-41.9); HEMOGLOBIN 11.1 g/dL (10.9-14.3); LYMPHOCYTES # (AUTO) 1.2 K/uL (20.0-40.0); LYMPHOCYTES % (AUTO) 20.8 % (20.5-51.5); MEAN CORPUSCULAR HEMOGLOBIN 26.3 uug (24.7-32.8); MEAN CORPUSCULAR HGB CONC 32 g/dL (32.3-35.6); MEAN CORPUSCULAR VOLUME 81.7 fL (75.5-95.3); MONOCYTES # (AUTO) 0.5 K/uL (2.0-10.0); MONOCYTES % (AUTO) 8.7 % (0.0-11.0); NEUTROPHILS # (AUTO) 3.9 K/uL (1.8-8.9); NEUTROPHILS % (AUTO) 68.8 % (38.5-71.5); RED BLOOD CELL COUNT(AUTO) 4.24 MIL/uL (3.63-4.92); WHITE BLOOD COUNT (AUTO) 5.7 K/uL (3.8-11.8)
[2020-02-06 08:28] LABS: CARBON DIOXIDE 20 mmol/L (21-32); CHLORIDE 106 mmol/L (98-107); CHOLESTEROL 187 mg/dL (<200); CREATININE 1.5 mg/dL (0.6-1.3); GLUCOSE 78 mg/dL (74-106); HDL CHOLESTEROL 42 mg/dL (40-60); MAGNESIUM 1.9 mg/dL (1.8-2.4); POTASSIUM 4.6 mmol/L (3.5-5.1); TRIGLYCERIDES 124 MG/DL (30-150); UREA NITROGEN, BLOOD 47 mg/dL (7-18)
[2020-02-06] MEDS: AMLODIPINE 5 MG TABLET PO SCH (08:35)
[2020-02-06] MEDS: LOSARTAN POTASSIUM 25 MG TABLET PO SCH (08:35)
[2020-02-06 08:59] LABS: PLATELET COUNT (AUTO) 322 K/uL (179-408)
[2020-02-06] MEDS ORDERED: FUROSEMIDE 40 MG/4 ML VIAL IV SCH (09:00)
--- NOTE | 2020-02-06 09:07 | NUR ---
received pt. resting in bed alert oriented swedish speaking. able to communicate with pt. pt. denies pain/ discomfort. pt. denies sob/ difficulty breathing. IV in L AC 22 gauge intact patent saline lock wrapped with kerlix. pt. on strict intake and output. safety measures in place. call light within reach. will continue to monitor pt.
[2020-02-06 11:45] VITALS: BP 143/63
--- NOTE | 2020-02-06 12:26 | NUR ---
pt. pulled out IV again. this is fourth IV inserted and removed. Instructed pt. before hand not to remove and I had son explain to her not to remove, unsuccessful.
[2020-02-06 15:11] VITALS: BP 126/59
--- NOTE | 2020-02-06 17:08 | NUR ---
pt. refusing vessel scrapper helper. Pt. has periods of confusion and takes off vessel scrapper helper.
--- NOTE | 2020-02-06 18:57 | NUR ---
Pt. resting in bed alert oriented x2 confused. Pt. removed IV. Pt. removed front desk monitor. Dr. Garcia aware. Stated he will see her tomorrow. walks to bathroom with assistance. safety measures in place. call light within reach. will endorse to pm nurse
[2020-02-06 20:30] VITALS: BP 161/63
--- NOTE | 2020-02-06 20:31 | NUR ---
Patient is removing Tele monitor. David Marte MOTORIZED SQUAD CAPTAIN was notified.
--- NOTE | 2020-02-06 21:00 | NUR ---
Patient was found sitting on the floor leaning against the wall. The cane was on the floor next to the patient. Patient was put back in bed and assessed for injuries. 1cm scrape was found on the left hand, cleansed and dressed with a sterile dressing. No other injuries were noted. Patient does not have signs of distress. Heel Seat Flap Stapler notified.
[2020-02-06] MEDS: SIMVASTATIN 10 MG TABLET PO SCH (21:31)
[2020-02-06] MEDS: ZOLPIDEM 5 MG TABLET PO PRN (21:32)
--- NOTE | 2020-02-06 22:26 | NUR ---
David Marte was notified of the unwitnessed fall, no new orders.
[2020-02-07 00:06] VITALS: BP 132/65
[2020-02-07 04:18] VITALS: BP 118/64
[2020-02-07 07:24] LABS: BASOPHILS % (AUTO) 0.8 % (0.0-2.0); EOSINOPHILS % (AUTO) 0.3 % (0.0-7.0); HEMATOCRIT 35.5 % (31.2-41.9); HEMOGLOBIN 11.9 g/dL (10.9-14.3); LYMPHOCYTES # (AUTO) 1.1 K/uL (20.0-40.0); LYMPHOCYTES % (AUTO) 23.8 % (20.5-51.5); MEAN CORPUSCULAR HEMOGLOBIN 26.9 uug (24.7-32.8); MEAN CORPUSCULAR HGB CONC 34 g/dL (32.3-35.6); MEAN CORPUSCULAR VOLUME 80.1 fL (75.5-95.3); MONOCYTES # (AUTO) 0.5 K/uL (2.0-10.0); MONOCYTES % (AUTO) 10.1 % (0.0-11.0); NEUTROPHILS # (AUTO) 3.1 K/uL (1.8-8.9); PLATELET COUNT (AUTO) 304 K/uL (179-408); RED BLOOD CELL COUNT(AUTO) 4.43 MIL/uL (3.63-4.92); WHITE BLOOD COUNT (AUTO) 4.8 K/uL (3.8-11.8)
[2020-02-07 07:43] LABS: CREATININE 1.3 mg/dL (0.6-1.3); POTASSIUM 4.3 mmol/L (3.5-5.1)
[2020-02-07 08:55] VITALS: BP 133/66
[2020-02-07] MEDS: PANTOPRAZOLE SODIUM 40 MG TABLET.DR PO SCH (08:55)
[2020-02-07] MEDS: MULTIVITAMINS,THERAPEUTIC TABLET PO SCH (08:56)
[2020-02-07] MEDS: LOSARTAN POTASSIUM 25 MG TABLET PO SCH (08:56)
[2020-02-07] MEDS: AMLODIPINE 5 MG TABLET PO SCH (08:57)
[2020-02-07] MEDS: ACETAMINOPHEN 325 MG TABLET PO PRN (09:41)
[2020-02-07 12:28] VITALS: BP 140/64
[2020-02-07 15:43] VITALS: BP 120/52
--- NOTE | 2020-02-07 17:30 | NUR ---
Pt AAOx1-2 in [place] language, to self and location only. Cognitive impairment evident. Pt able to follow simple commands and be redirected, poor impulse control observed. Pt often gets up out of bed quickly, sometimes without cane, attempts to ambulate unsteadily to bathroom. 1:1 sitter present, out of necessity. Tylenol administered per PRN for headache. All safety and infection precautions implemented. Will continue to monitor and follow up.
[2020-02-07 19:34] VITALS: BP 135/58
--- NOTE | 2020-02-07 20:11 | NUR ---
Pt received into care with 1:1 sitter at side. Pt is alert oriented x1-2 and has no complaints of pain or discomfort at this time. All safety and fall precaution measures are in place. Call light and personal items are within reach at all times. Will continue to monitor and assess.
[2020-02-07] MEDS: SIMVASTATIN 10 MG TABLET PO SCH (21:47)
[2020-02-07] MEDS: ZOLPIDEM 5 MG TABLET PO PRN (21:47)
[2020-02-08 04:00] VITALS: BP 143/63
--- NOTE | 2020-02-08 05:05 | NUR ---
Patient slept intermittently throughout night with 2-3 instances of trying to get out of bed without assistance. Pt is currently asleep but when awake is alert/oriented x1-2 and pleasantly confused. All prescribed medications were given as ordered and tolerated well, with no adverse side effects noted or observed by this nurse. 1:1 sitter and all safety, fall, and isolation precautions remain in place. Call light and personal items remain within reach.
[2020-02-08 06:32] LABS: BASOPHILS % (AUTO) 0.8 % (0.0-2.0); EOSINOPHILS # (AUTO) 0.1 K/uL (0.0-0.7); EOSINOPHILS % (AUTO) 1.2 % (0.0-7.0); HEMATOCRIT 38.7 % (31.2-41.9); HEMOGLOBIN 12.5 g/dL (10.9-14.3); LYMPHOCYTES # (AUTO) 1.2 K/uL (20.0-40.0); LYMPHOCYTES % (AUTO) 26.3 % (20.5-51.5); MEAN CORPUSCULAR HGB CONC 32 g/dL (32.3-35.6); MEAN CORPUSCULAR VOLUME 80.6 fL (75.5-95.3); MONOCYTES # (AUTO) 0.5 K/uL (2.0-10.0); MONOCYTES % (AUTO) 10.7 % (0.0-11.0); NEUTROPHILS # (AUTO) 2.8 K/uL (1.8-8.9); PLATELET COUNT (AUTO) 326 K/uL (179-408); RED BLOOD CELL COUNT(AUTO) 4.81 MIL/uL (3.63-4.92); WHITE BLOOD COUNT (AUTO) 4.6 K/uL (3.8-11.8)
[2020-02-08 06:45] LABS: CREATININE 1.3 mg/dL (0.6-1.3); POTASSIUM 4.3 mmol/L (3.5-5.1)
[2020-02-08 08:02] VITALS: BP 145/65
[2020-02-08] MEDS: LOSARTAN POTASSIUM 25 MG TABLET PO SCH (08:56)
[2020-02-08] MEDS: PANTOPRAZOLE SODIUM 40 MG TABLET.DR PO SCH (08:57)
[2020-02-08] MEDS: MULTIVITAMINS,THERAPEUTIC TABLET PO SCH (08:57)
[2020-02-08] MEDS: AMLODIPINE 5 MG TABLET PO SCH (08:57)
[2020-02-08] MEDS: ACETAMINOPHEN 325 MG TABLET PO PRN ×2 (09:29→20:17)
--- NOTE | 2020-02-08 09:30 | NUR ---
med tylenol for complaints of both knee throbbing pain. son mara on phone at this time
--- NOTE | 2020-02-08 10:00 | NUR ---
relief from knee pain verbalized
[2020-02-08 12:06] VITALS: BP 123/59
[2020-02-08 16:05] VITALS: BP 136/62
--- NOTE | 2020-02-08 19:30 | NUR ---
RECEIVED PT IN NO ACUTE DISTRESS. 1:1 SITTER FOR SAFETY. PT HAVE NO IV . DR AWARE BECAUSE PT KEEP PULLING IT OUT. SAFETY AND COMFORT PROVIDED. WILL CONTINUE TO MONITOR.
[2020-02-08 19:48] VITALS: BP 135/65
[2020-02-08] MEDS: SIMVASTATIN 10 MG TABLET PO SCH (20:16)
[2020-02-09] VITALS (7 sets, daily range): BP systolic 120–160; BP diastolic 62–70
--- NOTE | 2020-02-09 06:28 | NUR ---
PT SLEPT INTERMITTENTLY. SITTER PROVIDED FOR SAFETY. PT HAD EPISODES OF GETTING OUT OF THE BED ON HER OWN. PT IS A FALL RISK AND UNSTEADY. PT NEEDS REORIENTATION. PT HAD LEFT FOREARM 22G IV. INTACT AND PATENT. SAFETY AND COMFORT PROVIDED. WILL ENDORSE TO INCOMING NURSE FOR CONTINUITY OF CARE.
[2020-02-09 06:31] LABS: CREATININE 1.3 mg/dL (0.6-1.3)
--- NOTE | 2020-02-09 08:00 | NUR ---
1:1 sitter at bedside for safety. Pt denies any c/o pain. fall precaution implemented. Call light is within reach.
--- NOTE | 2020-02-09 08:05 | NUR ---
Dr martins here to see patient. Notified pt was positive for COVID per lab. COVID result not in computer secondary to technical difficulties due to covid.
[2020-02-09] MEDS: PANTOPRAZOLE SODIUM 40 MG TABLET.DR PO SCH (08:48)
[2020-02-09] MEDS: LOSARTAN POTASSIUM 25 MG TABLET PO SCH (08:48)
[2020-02-09] MEDS: MULTIVITAMINS,THERAPEUTIC TABLET PO SCH (08:48)
[2020-02-09] MEDS: AMLODIPINE 5 MG TABLET PO SCH (08:48)
--- NOTE | 2020-02-09 15:00 | NUR ---
PT had bm and urine culture sent as ordered.
[2020-02-09 17:08] LABS: *BILIRUBIN,URIN NEGATIVE (NEGATIVE); *BLOOD, URINE NEGATIVE (NEGATIVE); *CLARITY,URINE CLEAR (CLEAR); *COLOR,URINE YELLOW (YELLOW); *KETONES,URINE NEGATIVE (NEGATIVE); *UROBILINOGEN,URINE 0.2 E.U./dl (NORMAL); LEUKOCYTE ESTERASE ,URINE NEGATIVE (NEGATIVE); NITRITE, URINE NEGATIVE (NEGATIVE); UGLUCOSE NEGATIVE (NEGATIVE)
--- NOTE | 2020-02-09 19:30 | NUR ---
Patient has a 1:1 sitter. Received patient awake and lying in bed. No signs of acute distress at this time. VS stable. Patient is afebrile. O2 94% RA. 22g IV place in the left wrist. Bed set to lowest position. Side rails x2 up. test deck supervisor on and showing sinus rhythm. Safety measure initiated and will continue to monitor patient. Addendum: 02/10/20 at 0343 by CANDICE MARIE RN Patient has bruises on both hands and arms, dark purple in color. No active bleeding noted.
[2020-02-09] MEDS: SIMVASTATIN 10 MG TABLET PO SCH (20:15)
[2020-02-09 21:21] LABS: BACTERIA,URINE NONE SEEN /HPF (NONE SEEN); RBC,URINE 0-3 /HPF (0-3); SQUAMOUS EPITHELIAL CELL,UR FEW /HPF (NONE SEEN); WBC,URINE 0-3 /HPF (0-3)
[2020-02-10] VITALS (7 sets, daily range): BP systolic 124–163; BP diastolic 51–75
--- NOTE | 2020-02-10 06:23 | NUR ---
Patient slept through the night. No complaints of pain or SOB. No signs of acute distress. 1:1 sitter present at bedside. ekg monitor on sinus rhythm throughout. Left wrist IV patent and intact. Safety measures in place and will endorsed patient in stable condition to oncoming staff.
[2020-02-10 06:40] LABS: BASOPHILS # (AUTO) 0.1 K/uL (0.0-8.0); BASOPHILS % (AUTO) 1.7 % (0.0-2.0); EOSINOPHILS # (AUTO) 0.1 K/uL (0.0-0.7); EOSINOPHILS % (AUTO) 1.7 % (0.0-7.0); HEMATOCRIT 35.7 % (31.2-41.9); HEMOGLOBIN 11.4 g/dL (10.9-14.3); LYMPHOCYTES # (AUTO) 1.2 K/uL (20.0-40.0); LYMPHOCYTES % (AUTO) 25.4 % (20.5-51.5); MEAN CORPUSCULAR HEMOGLOBIN 25.7 uug (24.7-32.8); MEAN CORPUSCULAR HGB CONC 32 g/dL (32.3-35.6); MEAN CORPUSCULAR VOLUME 80.7 fL (75.5-95.3); MONOCYTES # (AUTO) 0.4 K/uL (2.0-10.0); MONOCYTES % (AUTO) 9.4 % (0.0-11.0); NEUTROPHILS # (AUTO) 2.9 K/uL (1.8-8.9); NEUTROPHILS % (AUTO) 61.8 % (38.5-71.5); PLATELET COUNT (AUTO) 364 K/uL (179-408); RED BLOOD CELL COUNT(AUTO) 4.43 MIL/uL (3.63-4.92); WHITE BLOOD COUNT (AUTO) 4.7 K/uL (3.8-11.8)
[2020-02-10 07:07] LABS: CREATININE 1.3 mg/dL (0.6-1.3); MAGNESIUM 2.1 mg/dL (1.8-2.4); PHOSPHOROUS 3.3 mg/dL (2.5-4.9); POTASSIUM 4.2 mmol/L (3.5-5.1)
[2020-02-10 07:58] LABS: ABG HCO3 15.1 mmol/L; ABG PCO2 27.6 mmHg (35.0-45.0); ABG PH 7.356 (7.350-7.450); ABG PO2 81.6 mmHg (75.0-100.0); ABG SITE RIGHT RADIAL; ABG TOTAL HEMOGLOBIN 12.1 G/dL (12.0-16.0); COHb 0.8 % (0.5-1.5); MetHb 0.2 % (0.0-1.5); O2Hb 94.9 % (94.0-97.0)
[2020-02-10] MEDS: MULTIVITAMINS,THERAPEUTIC TABLET PO SCH (09:19)
[2020-02-10] MEDS: LOSARTAN POTASSIUM 25 MG TABLET PO SCH (09:19)
[2020-02-10] MEDS: PANTOPRAZOLE SODIUM 40 MG TABLET.DR PO SCH (09:19)
[2020-02-10] MEDS: AMLODIPINE 5 MG TABLET PO SCH (09:19)
--- NOTE | 2020-02-10 10:47 | NUR ---
Received patient awake in bed in stable condition. not in distress. afebrile 98.8'F, SAO2-95%. no complaint of pain/discomfort. Patient continue on 1:1 sitter. Patient seen dangling feet on the bed. no agitation noted. Continue fall risk precaution maintained. will continue monitor
[2020-02-10] MEDS ORDERED: ENOXAPARIN SODIUM 30 MG/0.3 ML DISP.SYRIN SQ SCH (11:00)
[2020-02-10] MEDS ORDERED: FUROSEMIDE 20 MG/2 ML VIAL IV ONE (13:30)
[2020-02-10] MEDS: ACETAMINOPHEN 325 MG TABLET PO PRN (13:48)
--- NOTE | 2020-02-10 14:22 | NUR ---
Patient dislodge IV site left wrist, replace IV to right forearm G22, intact and patent. Patient compliance with medication. new order of lasix 2ML INJ given. will continue monitor
--- NOTE | 2020-02-10 16:07 | NUR ---
Patient agitation noted. Patient wanting to move out from room, screaming slovak words and combative with the staff. Patient use the cane trying to hit the engineering technical writer and the sitter. Patient put in jarrell chair and redirect with fair effect. MD Johnson notified and ordered xanax 0.5mg q8hour PRN. will continue monitor for safety.
[2020-02-10] MEDS ORDERED: ALPRAZOLAM 0.5 MG TABLET PO PRN (16:15)
--- NOTE | 2020-02-10 19:00 | NUR ---
Received patient sitting in chair, alert awakex2. Patient is agitated and keep on screaming in armenian words, sitter on site. Patient's vitals stable. Patient on room air and saturating WNL. Safety measures in place. Bed low and locked in position Will continue with the plan of care.
--- NOTE | 2020-02-10 21:30 | NUR ---
Patient is D/C to home. Sent down via wheelchair and picked up by the son. Patient is calm and vitals are stable. Patient's belongings were checked and given to the pt. D/C instructions was given to son and demonstrated understanding.
== END 2020-02-10 21:30 | disposition home or self-care (01) | DRG 177 ==
LOC: ER 12:03 → TELE3 15:16
PROVIDERS: ADMIT Family Medicine; ATTEND Internal Medicine
DX: U07.1 COVID-19 (principal); J12.89 Other viral pneumonia; I50.33 Acute on chronic diastolic (congestive) heart failure; N17.0 Acute kidney failure with tubular necrosis; G92 Toxic encephalopathy; E87.2 Acidosis; E44.1 Mild protein-calorie malnutrition; I13.0 Hypertensive heart and chronic kidney disease with heart failure and stage 1 through stage 4 chronic kidney disease, or unspecified chronic kidney disease; F02.81 Dementia in other diseases classified elsewhere, unspecified severity, with behavioral disturbance; E11.42 Type 2 diabetes mellitus with diabetic polyneuropathy; G30.9 Alzheimer's disease, unspecified; E88.09 Other disorders of plasma-protein metabolism, not elsewhere classified; R10.9 Unspecified abdominal pain; E11.22 Type 2 diabetes mellitus with diabetic chronic kidney disease; N18.9 Chronic kidney disease, unspecified; K80.20 Calculus of gallbladder without cholecystitis without obstruction; K76.89 Other specified diseases of liver; K44.9 Diaphragmatic hernia without obstruction or gangrene; K57.30 Diverticulosis of large intestine without perforation or abscess without bleeding; M19.90 Unspecified osteoarthritis, unspecified site; M48.02 Spinal stenosis, cervical region; R53.1 Weakness
CPT/HCPCS: 36415; 36600; 70030-TC; 71045; 83605; 83615; 83690; 83735; 84100; 84443; 85025; 85730; 86140; 87040; 87086; 93005; 93307; A4663; G0378; J0696; J1650; J1940; U0003-CS

== ENCOUNTER 2020-12-04 16:41 | Emergency (ER) | payer OTHER ==
[~2020-12-04] VITALS: Ht 157.5 cm; Wt 63.5 kg
[~2020-12-04 16:41] MED LIST changes: +AMLO-212 PO; -AMLO5TAB9 PO; -MECL-182 PO; +MECL-225 PO; -PANT40TA4 PO; +PANT40TA49 PO
--- NOTE | 2020-12-04 17:11 | NUR ---
MD@bedside, medical screening exam in progress
[2020-12-04 18:04] LABS: BASOPHILS # (AUTO) 0.1 K/uL (0.0-8.0); BASOPHILS % (AUTO) 0.8 % (0.0-2.0); EOSINOPHILS # (AUTO) 0.2 K/uL (0.0-0.7); EOSINOPHILS % (AUTO) 1.3 % (0.0-7.0); HEMATOCRIT 29.4 % (31.2-41.9); HEMOGLOBIN 9.3 g/dL (10.9-14.3); LYMPHOCYTES # (AUTO) 1.4 K/uL (20.0-40.0); LYMPHOCYTES % (AUTO) 10.5 % (20.5-51.5); MEAN CORPUSCULAR HEMOGLOBIN 25.3 uug (24.7-32.8); MEAN CORPUSCULAR HGB CONC 32 g/dL (32.3-35.6); MEAN CORPUSCULAR VOLUME 80.1 fL (75.5-95.3); MONOCYTES # (AUTO) 0.7 K/uL (2.0-10.0); MONOCYTES % (AUTO) 4.9 % (0.0-11.0); NEUTROPHILS # (AUTO) 11.1 K/uL (1.8-8.9); NEUTROPHILS % (AUTO) 82.5 % (38.5-71.5); PLATELET COUNT (AUTO) 398 K/uL (179-408); RED BLOOD CELL COUNT(AUTO) 3.68 MIL/uL (3.63-4.92); WHITE BLOOD COUNT (AUTO) 13.5 K/uL (3.8-11.8)
[2020-12-04 18:09] LABS: CARBON DIOXIDE 20 mmol/L (21-32); CHLORIDE 112 mmol/L (98-107); CREATININE 2.1 mg/dL (0.6-1.3); GLUCOSE 124 mg/dL (74-106); POTASSIUM 5.2 mmol/L (3.5-5.1); UREA NITROGEN, BLOOD 63 mg/dL (7-18)
--- NOTE | 2020-12-04 18:10 | NUR ---
"May remove soft collar now." per Dr Fox. Neck collar is off now per MD's order.
[2020-12-04 18:15] LABS: ALANINE AMINOTRANSFERASE 15 U/L (14-59); ALKALINE PHOSPHATASE 80 U/L (50-136); ASPARTATE AMINOTRANSFERASE 22 U/L (15-37); BILIRUBIN,DIRECT 0.1 mg/dL (0.0-0.2); BILIRUBIN,TOTAL 0.2 mg/dL (0.2-1.0); TOTAL PROTEIN, SERUM 6.7 g/dL (6.4-8.2)
[2020-12-04] MEDS ORDERED: ACETAMINOPHEN ES 500 MG TABLET PO ONE (18:30)
--- NOTE | 2020-12-04 18:35 | NUR ---
Patient ambulated to bathroom with one-person assist. Urine collected with a "hat" and sent to lab.
[2020-12-04 18:41] LABS: *BILIRUBIN,URIN NEGATIVE (NEGATIVE); *BLOOD, URINE 2+ (NEGATIVE); *CLARITY,URINE CLEAR (CLEAR); *COLOR,URINE YELLOW (YELLOW); *KETONES,URINE NEGATIVE (NEGATIVE); *UROBILINOGEN,URINE 0.2 E.U./dl (NORMAL); LEUKOCYTE ESTERASE ,URINE NEGATIVE (NEGATIVE); NITRITE, URINE NEGATIVE (NEGATIVE); PH,URINE 5.5 (5.0-8.0); UGLUCOSE NEGATIVE (NEGATIVE)
[2020-12-04] MEDS ORDERED: ACETAMINOPHEN ES 500 MG TABLET ONE (18:45)
[2020-12-04] MEDS ORDERED: ASPIRIN 81 MG TAB.CHEW ONE (18:57)
[2020-12-04 18:59] LABS: BACTERIA,URINE NONE SEEN /HPF (NONE SEEN); WBC,URINE 0-3 /HPF (0-3)
[2020-12-04] MEDS ORDERED: ASPIRIN 81 MG TAB.CHEW PO ONE (19:00)
[2020-12-04] MEDS ORDERED: POTA10CA43 PO (19:21)
[2020-12-04] MEDS ORDERED: IBUP-1953 PO (19:21)
[2020-12-04] MEDS ORDERED: MEMA10TA PO (19:21)
[2020-12-04] MEDS ORDERED: LINZESS (19:21)
[2020-12-04] MEDS ORDERED: METF-440 PO (19:21)
[2020-12-04] MEDS ORDERED: ASPI81TA31 PO (19:21)
[2020-12-04] MEDS ORDERED: METO-357 PO (19:21)
[2020-12-04] MEDS ORDERED: VITAMIN D3 (19:21)
[2020-12-04] MEDS ORDERED: ATOR20TA PO (19:21)
--- NOTE | 2020-12-04 19:30 | NUR ---
[employer] insurance biller Berta called to state that patient will be going to [facility] d/t her abnormal EKG and for access to mine laborer services. Accepting MD: Tavares Foster Unit: telemetry Transport level: ALS ambulance being arranged by insurance company. Requested fax of ER summary report to
--- NOTE | 2020-12-04 21:21 | NUR ---
MD Villanueva connected to [employer] for [id number] report.
--- NOTE | 2020-12-04 22:23 | NUR ---
Report given to EARLENE Funez at [facility] . Patient will be going to telemetry unit 434 A. Ambulance will be coming to mushroom picker the patient from 11:00-11:30. MD Tavares MARRERO is the accepting physician.
--- NOTE | 2020-12-04 22:46 | NUR ---
Patient is resting at bedside with son, no acute distress noted at this time.
--- NOTE | 2020-12-04 23:30 | NUR ---
CCT Unit [facility] arrived to sweet pickled fruit maker patient. EARLENE Weaver received report and paperwork on patient.
--- NOTE | 2020-12-05 | NUR ---
Patient Tranfers to outside Facility via CCT [facility]. Physician: MD Tavares Castle Location: [facility] to telemetry unit [id number].
== END 2020-12-05 | disposition short-term general hospital (02) ==
LOC: ER 16:44
DX: R07.9 Chest pain, unspecified (principal); G30.9 Alzheimer's disease, unspecified; F02.80 Dementia in other diseases classified elsewhere, unspecified severity, without behavioral disturbance, psychotic disturbance, mood disturbance, and anxiety; Z96.653 Presence of artificial knee joint, bilateral; Z79.84 Long term (current) use of oral hypoglycemic drugs; Z79.82 Long term (current) use of aspirin; Z79.899 Other long term (current) drug therapy; E78.5 Hyperlipidemia, unspecified; S00.83XA Contusion of other part of head, initial encounter; W18.30XA Fall on same level, unspecified, initial encounter; Y92.032 Bedroom in apartment as the place of occurrence of the external cause; E11.22 Type 2 diabetes mellitus with diabetic chronic kidney disease; I13.10 Hypertensive heart and chronic kidney disease without heart failure, with stage 1 through stage 4 chronic kidney disease, or unspecified chronic kidney disease; N18.9 Chronic kidney disease, unspecified; M54.2 Cervicalgia; Z83.3 Family history of diabetes mellitus; Z82.49 Family history of ischemic heart disease and other diseases of the circulatory system; D72.829 Elevated white blood cell count, unspecified; D64.9 Anemia, unspecified; N17.9 Acute kidney failure, unspecified; E87.5 Hyperkalemia; R77.8 Other specified abnormalities of plasma proteins; Z20.822 Contact with and (suspected) exposure to COVID-19; E11.40 Type 2 diabetes mellitus with diabetic neuropathy, unspecified
CPT/HCPCS: 36415; 70030-TC; 70450; 70486; 71045; 71250; 72125; 85025; 93005; A4663; A9150

== ENCOUNTER 2021-01-06 00:54 | Inpatient (IN) | payer OTHER ==
[2021-01-06] VITALS (13 sets, daily range): BP systolic 102–134; BP diastolic 54–73
[~2021-01-06] VITALS: Ht 152.4 cm; Wt 80.3 kg
[~2021-01-06 00:54] MED LIST changes: -AMLO-212 PO; +ASPI81TA31 PO; +ATOR20TA PO; +IBUP-1953 PO; +LINZESS PO; +MEMA10TA PO; +METF-440 PO; +METO-357 PO; +POTA10CA43 PO; -SIMV10TA2 PO; +VITAMIN D3 PO
[2021-01-06] MEDS ORDERED: FUROSEMIDE 40 MG/4 ML VIAL IV ONE (01:15)
[2021-01-06] MEDS ORDERED: NITROGLYCERIN IV 250 ML IV PRN (01:15)
[2021-01-06] MEDS ORDERED: NITROGLYCERIN IV 250 ML ONE (01:27)
[2021-01-06] MEDS ORDERED: FUROSEMIDE 40 MG/4 ML VIAL ONE (01:28)
[2021-01-06 01:32] LABS: HEMATOCRIT 32.5 % (31.2-41.9); MEAN CORPUSCULAR HEMOGLOBIN 24.4 uug (24.7-32.8); MEAN CORPUSCULAR VOLUME 80.8 fL (75.5-95.3); PLATELET COUNT (AUTO) 395 K/uL (179-408)
[2021-01-06 01:38] LABS: ABG HCO3 16.7 mmol/L; ABG PCO2 28.1 mmHg (35.0-45.0); ABG PH 7.391 (7.350-7.450); ABG PO2 86.8 mmHg (75.0-100.0); ABG SITE RIGHT RADIAL; ABG TOTAL HEMOGLOBIN 11.2 G/dL (12.0-16.0); COHb 1.2 % (0.5-1.5); MetHb 0.1 % (0.0-1.5); O2Hb 95.7 % (94.0-97.0); VENT MODE Nasal Cannula
[2021-01-06 01:50] LABS: MAGNESIUM 1.7 mg/dL (1.8-2.4); PHOSPHOROUS 4.2 mg/dL (2.5-4.9)
[2021-01-06 01:52] LABS: CARBON DIOXIDE 19 mmol/L (21-32); CHLORIDE 103 mmol/L (98-107); CREATININE 1.6 mg/dL (0.6-1.3); GLUCOSE 137 mg/dL (74-106); POTASSIUM 4.8 mmol/L (3.5-5.1); UREA NITROGEN, BLOOD 60 mg/dL (7-18)
[2021-01-06] MEDS ORDERED: CEFEPIME HCL 2 G in IV DEXTROSE 5% 100 ML IV ONE (02:00)
[2021-01-06 02:07] LABS: ALANINE AMINOTRANSFERASE 17 U/L (14-59); ALKALINE PHOSPHATASE 101 U/L (50-136); ASPARTATE AMINOTRANSFERASE 19 U/L (15-37); BILIRUBIN,DIRECT 0.1 mg/dL (0.0-0.2); BILIRUBIN,TOTAL 0.5 mg/dL (0.2-1.0); TOTAL PROTEIN, SERUM 7.4 g/dL (6.4-8.2)
[2021-01-06] MEDS: MAGNESIUM SULFATE/D5W 100 ML IV SCH ×2 (02:09→03:10)
[2021-01-06] MEDS ORDERED: MAGNESIUM SULFATE/D5W 200 ML ONE (02:10)
[2021-01-06] MEDS ORDERED: CEFEPIME HCL 1 G VIAL ONE (02:11)
[2021-01-06] MEDS ORDERED: DOXYCYCLINE HYCLATE IV 100 MG in IV DEXTROSE 5% 100 ML IV ONE (02:45)
[2021-01-06] MEDS ORDERED: LORAZEPAM 2 MG/1 ML VIAL IV ONE ×2 (02:45→03:30)
[2021-01-06] MEDS ORDERED: VANCOMYCIN IV 1,000 MG in IV DEXTROSE 5% 250 ML IV ONE (02:45)
[2021-01-06] MEDS ORDERED: LORAZEPAM 2 MG/1 ML VIAL ONE ×2 (02:52→04:14)
[2021-01-06] MEDS ORDERED: VANCOMYCIN IV 200 ML ONE (03:08)
[2021-01-06] MEDS ORDERED: levoFLOXacin 750 MG/D5W 150 ML PIGGYBACK IV ONE (03:15)
[2021-01-06] MEDS ORDERED: HYDROMORPHONE 1 MG/1 ML DISP.SYRIN IV ONE (03:15)
[2021-01-06] MEDS ORDERED: SWABABLE VALVE TRANSFER SET EA MC ONE (03:26)
[2021-01-06] MEDS ORDERED: IV NORMAL SALINE 250 ML IV ONE (03:26)
[2021-01-06] MEDS ORDERED: IOHEXOL 350 100 ML INFUS..BTL ONE (03:26)
[2021-01-06] MEDS ORDERED: ACETAMINOPHEN 650 MG SUPP.RECT RC ONE ×2 (03:30→03:34)
[2021-01-06] MEDS ORDERED: PANTOPRAZOLE SODIUM IV 80 MG in IV DEXTROSE 5% 100 ML IV ONE (03:30)
[2021-01-06 03:31] LABS: *BILIRUBIN,URIN NEGATIVE (NEGATIVE); *BLOOD, URINE 2+ (NEGATIVE); *CLARITY,URINE CLEAR (CLEAR); *COLOR,URINE YELLOW (YELLOW); *KETONES,URINE NEGATIVE (NEGATIVE); *UROBILINOGEN,URINE 0.2 E.U./dl (NORMAL); LEUKOCYTE ESTERASE ,URINE NEGATIVE (NEGATIVE); NITRITE, URINE NEGATIVE (NEGATIVE); PH,URINE 5.5 (5.0-8.0); UGLUCOSE NEGATIVE (NEGATIVE)
[2021-01-06 03:46] LABS: THYROID STIMULATING HORMONE 0.139 mIU/mL (0.358-3.740)
[2021-01-06 03:50] LABS: BACTERIA,URINE NONE SEEN /HPF (NONE SEEN); RBC,URINE 20-50 /HPF (0-3); SQUAMOUS EPITHELIAL CELL,UR FEW /HPF (NONE SEEN); URINE AMORPHOUS URATE MODERATE /HPF; WBC,URINE 0-3 /HPF (0-3)
[2021-01-06] MEDS ORDERED: levoFLOXacin 750MG/D5W 150 ML IV ONE (04:37)
[2021-01-06] MEDS ORDERED: PANTOPRAZOLE SODIUM 40 MG VIAL ONE (04:49)
[2021-01-06] MEDS ORDERED: FERR325T23 PO (05:28)
[2021-01-06] MEDS ORDERED: RISP0.5T65 PO (05:28)
[2021-01-06] MEDS ORDERED: METO50TA16 PO (05:28)
[2021-01-06] MEDS ORDERED: ISOS30TA86 PO (05:28)
[2021-01-06] MEDS ORDERED: GLIP5TAB13 PO (05:28)
[2021-01-06] MEDS ORDERED: DOCU100C36 PO (05:28)
[2021-01-06] MEDS ORDERED: CLOP75TA33 PO (05:28)
[2021-01-06] MEDS ORDERED: FAMO40TA7 PO (05:28)
[2021-01-06] MEDS ORDERED: GABA300C PO (05:28)
[2021-01-06] MEDS ORDERED: BISACODYL 10 MG SUPP.RECT RC PRN (06:30)
[2021-01-06] MEDS: PIPERACILLIN SODIUM/TAZOBACTAM 3.375 G in IV DEXTROSE 5% 100 ML IV SCH ×2 (08:31→20:35)
[2021-01-06] MEDS: FUROSEMIDE 40 MG/4 ML VIAL IV SCH ×2 (08:56→16:35)
[2021-01-06] MEDS ORDERED: FUROSEMIDE 20 MG/2 ML VIAL IV SCH (09:00)
[2021-01-06] MEDS: PANTOPRAZOLE SODIUM 40 MG TABLET.DR PO SCH (09:00)
[2021-01-06] MEDS: ENOXAPARIN SODIUM 30 MG/0.3 ML DISP.SYRIN SUBCUT SCH (09:23)
[2021-01-06] MEDS: DOCUSATE SODIUM 100 MG CAPSULE PO SCH ×3 (11:44→16:35)
[2021-01-06] MEDS: ASPIRIN 81 MG TAB.CHEW PO SCH ×2 (11:44→12:03)
[2021-01-06] MEDS: ISOSORBIDE MONONITRATE 30 MG TAB.SR.24H PO SCH ×2 (11:45→12:04)
[2021-01-06] MEDS: CLOPIDOGREL 75 MG TABLET PO SCH (12:01)
[2021-01-06] MEDS ORDERED: DEXTROSE 50% 50 ML DISP.SYRIN IV PRN (12:30)
[2021-01-06] MEDS: ALBUTEROL SULFATE 2.5 MG/ 0.5 ML NEBU NEB PRN ×2 (12:48→17:51)
[2021-01-06] MEDS ORDERED: PIPERACILLIN SODIUM/TAZOBACTAM 3.375 G in IV DEXTROSE 5% 50 ML IV SCH (14:00)
[2021-01-06] MEDS: BLOOD SUGAR DIAGNOSTIC 1 EACH STRIP VI SCH ×2 (16:26→22:06)
[2021-01-06] MEDS ORDERED: POTA8TAB3 PO (16:44)
[2021-01-06] MEDS: MORPHINE SULFATE 2 MG/1 ML DISP.SYRIN IV PRN (18:06)
[2021-01-06] MEDS ORDERED: LORAZEPAM 0.5 MG TABLET PO PRN (18:45)
[2021-01-06] MEDS: ATORVASTATIN 20 MG TABLET PO SCH (20:35)
[2021-01-06] MEDS ORDERED: HALOPERIDOL DECANOATE 50 MG/1 ML AMPUL IM ONE (21:45)
[2021-01-06] MEDS ORDERED: HALOPERIDOL LACTATE 5 MG/1 ML VIAL IM STA (22:08)
[2021-01-06] MEDS: INSULIN REGULAR, HUMAN 300 UNIT/3 ML VIAL SQ PRN (22:12)
[2021-01-06] MEDS ORDERED: HALOPERIDOL LACTATE 5 MG/1 ML VIAL IM ONE (22:15)
[2021-01-07 00:05] VITALS: BP 124/82
[2021-01-07] MEDS: LORAZEPAM 2 MG/1 ML VIAL IV PRN ×3 (00:55→21:13)
[2021-01-07] MEDS: ALBUTEROL SULFATE 2.5 MG/ 0.5 ML NEBU NEB PRN ×4 (01:36→21:41)
[2021-01-07 04:25] VITALS: BP 118/64
[2021-01-07 05:47] LABS: HEMATOCRIT 28.9 % (31.2-41.9); MEAN CORPUSCULAR HEMOGLOBIN 24.8 uug (24.7-32.8); MEAN CORPUSCULAR VOLUME 80.6 fL (75.5-95.3); PLATELET COUNT (AUTO) 297 K/uL (179-408)
[2021-01-07 06:01] LABS: CARBON DIOXIDE 19 mmol/L (21-32); CHLORIDE 101 mmol/L (98-107); CREATININE 2.3 mg/dL (0.6-1.3); GLUCOSE 83 mg/dL (74-106); MAGNESIUM 2.6 mg/dL (1.8-2.4); POTASSIUM 4.4 mmol/L (3.5-5.1); UREA NITROGEN, BLOOD 72 mg/dL (7-18)
[2021-01-07] MEDS: PANTOPRAZOLE SODIUM 40 MG TABLET.DR PO SCH (06:30)
[2021-01-07] MEDS: BLOOD SUGAR DIAGNOSTIC 1 EACH STRIP VI SCH ×4 (06:30→22:31)
[2021-01-07] MEDS: PIPERACILLIN SODIUM/TAZOBACTAM 3.375 G in IV DEXTROSE 5% 100 ML IV SCH ×2 (08:00→20:08)
[2021-01-07] MEDS: FUROSEMIDE 40 MG/4 ML VIAL IV SCH (08:00)
[2021-01-07] MEDS: ENOXAPARIN SODIUM 30 MG/0.3 ML DISP.SYRIN SUBCUT SCH (08:01)
[2021-01-07] MEDS: DOCUSATE SODIUM 100 MG CAPSULE PO SCH ×2 (08:38→16:17)
[2021-01-07] MEDS: CLOPIDOGREL 75 MG TABLET PO SCH (08:38)
[2021-01-07] MEDS: ASPIRIN 81 MG TAB.CHEW PO SCH (08:38)
[2021-01-07] MEDS: ISOSORBIDE MONONITRATE 30 MG TAB.SR.24H PO SCH (08:38)
[2021-01-07] MEDS ORDERED: IV NORMAL SALINE 500 ML IV ONE (09:30)
[2021-01-07 10:28] VITALS: BP 106/59
[2021-01-07 11:20] VITALS: BP 106/58
[2021-01-07] MEDS: INSULIN REGULAR, HUMAN 300 UNIT/3 ML VIAL SQ PRN ×3 (11:41→22:33)
[2021-01-07 15:22] VITALS: BP 126/67
[2021-01-07] MEDS: ATORVASTATIN 20 MG TABLET PO SCH (20:11)
[2021-01-07 20:25] VITALS: BP 134/72
[2021-01-07] MEDS: IV NS 1000 ML 1,000 ML IV PRN (20:27)
[2021-01-07] MEDS: ACETAMINOPHEN 325 MG TABLET PO PRN (21:13)
[2021-01-07] MEDS: MORPHINE SULFATE 2 MG/1 ML DISP.SYRIN IV PRN (22:06)
[2021-01-08] VITALS: BP 118/58
[2021-01-08 04:25] VITALS: BP 117/61
[2021-01-08] MEDS: ALBUTEROL SULFATE 2.5 MG/ 0.5 ML NEBU NEB PRN ×3 (06:09→20:03)
[2021-01-08] MEDS: PANTOPRAZOLE SODIUM 40 MG TABLET.DR PO SCH (06:32)
[2021-01-08] MEDS: BLOOD SUGAR DIAGNOSTIC 1 EACH STRIP VI SCH ×4 (06:35→20:47)
[2021-01-08] MEDS: CLOPIDOGREL 75 MG TABLET PO SCH (08:24)
[2021-01-08] MEDS: DOCUSATE SODIUM 100 MG CAPSULE PO SCH ×2 (08:24→17:32)
[2021-01-08] MEDS: ASPIRIN 81 MG TAB.CHEW PO SCH (08:24)
[2021-01-08] MEDS: PIPERACILLIN SODIUM/TAZOBACTAM 3.375 G in IV DEXTROSE 5% 100 ML IV SCH ×2 (08:24→20:41)
[2021-01-08] MEDS: ISOSORBIDE MONONITRATE 30 MG TAB.SR.24H PO SCH (08:35)
[2021-01-08] MEDS: ENOXAPARIN SODIUM 30 MG/0.3 ML DISP.SYRIN SUBCUT SCH (08:36)
[2021-01-08 10:34] LABS: CARBON DIOXIDE 17 mmol/L (21-32); CHLORIDE 102 mmol/L (98-107); CREATININE 3.5 mg/dL (0.6-1.3); GLUCOSE 202 mg/dL (74-106); POTASSIUM 5.3 mmol/L (3.5-5.1); UREA NITROGEN, BLOOD 76 mg/dL (7-18)
[2021-01-08 10:38] LABS: HEMATOCRIT 29.6 % (31.2-41.9); MEAN CORPUSCULAR HEMOGLOBIN 24.9 uug (24.7-32.8); MEAN CORPUSCULAR VOLUME 81.3 fL (75.5-95.3); PLATELET COUNT (AUTO) 319 K/uL (179-408)
[2021-01-08 11:18] VITALS: BP 107/68
[2021-01-08] MEDS: INSULIN REGULAR, HUMAN 300 UNIT/3 ML VIAL SQ PRN ×2 (11:52→17:33)
[2021-01-08] MEDS: IV NS 1000 ML 1,000 ML IV PRN (14:06)
[2021-01-08 15:09] VITALS: BP 109/59
[2021-01-08 20:12] VITALS: BP 128/69
[2021-01-08] MEDS: ATORVASTATIN 20 MG TABLET PO SCH (20:41)
[2021-01-08] MEDS: LORAZEPAM 2 MG/1 ML VIAL IV PRN (21:35)
[2021-01-08] MEDS: MORPHINE SULFATE 2 MG/1 ML DISP.SYRIN IV PRN (23:24)
[2021-01-09 00:03] VITALS: BP 132/67
[2021-01-09] MEDS: ALBUTEROL SULFATE 2.5 MG/ 0.5 ML NEBU NEB PRN ×3 (03:25→15:40)
[2021-01-09 06:42] LABS: HEMATOCRIT 30.6 % (31.2-41.9); MEAN CORPUSCULAR HEMOGLOBIN 25.1 uug (24.7-32.8); MEAN CORPUSCULAR VOLUME 80.3 fL (75.5-95.3); PLATELET COUNT (AUTO) 352 K/uL (179-408)
[2021-01-09] MEDS: PANTOPRAZOLE SODIUM 40 MG TABLET.DR PO SCH (06:47)
[2021-01-09] MEDS: BLOOD SUGAR DIAGNOSTIC 1 EACH STRIP VI SCH ×4 (06:49→20:47)
[2021-01-09 06:50] LABS: CARBON DIOXIDE 15 mmol/L (21-32); CHLORIDE 102 mmol/L (98-107); CREATININE 3.9 mg/dL (0.6-1.3); GLUCOSE 94 mg/dL (74-106); MAGNESIUM 2.8 mg/dL (1.8-2.4); PHOSPHOROUS 7.3 mg/dL (2.5-4.9); POTASSIUM 5.6 mmol/L (3.5-5.1); UREA NITROGEN, BLOOD 79 mg/dL (7-18)
[2021-01-09] MEDS: CLOPIDOGREL 75 MG TABLET PO SCH (08:09)
[2021-01-09] MEDS: DOCUSATE SODIUM 100 MG CAPSULE PO SCH ×2 (08:09→16:32)
[2021-01-09] MEDS: ASPIRIN 81 MG TAB.CHEW PO SCH (08:09)
[2021-01-09] MEDS: ENOXAPARIN SODIUM 30 MG/0.3 ML DISP.SYRIN SUBCUT SCH (08:09)
[2021-01-09] MEDS: ISOSORBIDE MONONITRATE 30 MG TAB.SR.24H PO SCH (08:09)
[2021-01-09] MEDS: PIPERACILLIN SODIUM/TAZOBACTAM 3.375 G in IV DEXTROSE 5% 100 ML IV SCH ×2 (08:12→20:40)
[2021-01-09] MEDS: LORAZEPAM 2 MG/1 ML VIAL IV PRN ×2 (09:05→20:55)
[2021-01-09 09:55] LABS: EOSINOPHILS % (MANUAL) 4 % (0-8); LYMPHOCYTES % (MANUAL) 6 % (20-40); MONOCYTES % (MANUAL) 2 % (2-10); NEUTROPHILS % (MANUAL) 88 % (42-75)
[2021-01-09 11:45] VITALS: BP 135/100
[2021-01-09] MEDS ORDERED: FUROSEMIDE 40 MG/4 ML VIAL IV ONE (12:00)
[2021-01-09] MEDS ORDERED: SODIUM POLYSTYRENE SULFONATE 15 G/60 ML LIQUID UDC PO ONE (12:00)
[2021-01-09 15:21] VITALS: BP 137/76
[2021-01-09] MEDS: INSULIN REGULAR, HUMAN 300 UNIT/3 ML VIAL SQ PRN ×2 (16:33→20:50)
[2021-01-09] MEDS: IV NS 1000 ML 1,000 ML IV PRN (17:46)
[2021-01-09 19:05] LABS: ABG BASE EXCESS -8.9 mmol/L; ABG HCO3 13.8 mmol/L; ABG PCO2 21.3 mmHg (35.0-45.0); ABG PO2 138.1 mmHg (75.0-100.0); ABG SITE RIGHT RADIAL; ABG TOTAL HEMOGLOBIN 9.9 G/dL (12.0-16.0); COHb 0.9 % (0.5-1.5); MetHb 0.2 % (0.0-1.5); VENT MODE Room Air
[2021-01-09] MEDS ORDERED: LEVALBUTEROL HCL 1.25 MG/0.5 ML NEB NEB SCH (19:45)
[2021-01-09 20:18] VITALS: BP 167/90
[2021-01-09 20:21] LABS: CARBON DIOXIDE 19 mmol/L (21-32); CHLORIDE 102 mmol/L (98-107); CREATININE 4.1 mg/dL (0.6-1.3); GLUCOSE 165 mg/dL (74-106); POTASSIUM 5.6 mmol/L (3.5-5.1)
[2021-01-09 20:31] LABS: UREA NITROGEN, BLOOD 87 mg/dL (7-18)
[2021-01-09] MEDS: ATORVASTATIN 20 MG TABLET PO SCH (20:39)
[2021-01-09] MEDS: methylPREDNISolone SOD SUCC 125 MG/2 ML VIAL IV SCH (22:00)
[2021-01-09] MEDS: LEVALBUTEROL HCL 1.25 MG/0.5 ML NEB NEB SCH ×2 (22:04→22:11)
[2021-01-10] VITALS (24 sets, daily range): BP systolic 96–147; BP diastolic 64–99
[2021-01-10] MEDS: LEVALBUTEROL HCL 1.25 MG/0.5 ML NEB NEB SCH ×7 (00:39→23:37)
[2021-01-10] MEDS ORDERED: MANNITOL 25% 12.5 G/50 ML VIAL IV ONE (04:15)
[2021-01-10] MEDS: MORPHINE SULFATE 2 MG/1 ML DISP.SYRIN IV PRN (05:00)
[2021-01-10 05:45] LABS: ALANINE AMINOTRANSFERASE 16 U/L (14-59); ALKALINE PHOSPHATASE 101 U/L (50-136); ASPARTATE AMINOTRANSFERASE 14 U/L (15-37); BILIRUBIN,TOTAL 0.3 mg/dL (0.2-1.0); CARBON DIOXIDE 12 mmol/L (21-32); CHLORIDE 96 mmol/L (98-107); CREATININE 3.8 mg/dL (0.6-1.3); GLUCOSE 131 mg/dL (74-106); MAGNESIUM 2.4 mg/dL (1.8-2.4); PHOSPHOROUS 7.8 mg/dL (2.5-4.9); POTASSIUM 5.6 mmol/L (3.5-5.1); TOTAL PROTEIN, SERUM 6.5 g/dL (6.4-8.2)
[2021-01-10] MEDS: methylPREDNISolone SOD SUCC 125 MG/2 ML VIAL IV SCH ×3 (05:51→22:54)
[2021-01-10 05:58] LABS: UREA NITROGEN, BLOOD 86 mg/dL (7-18)
[2021-01-10 07:13] LABS: HEMATOCRIT 30.4 % (31.2-41.9); MEAN CORPUSCULAR HEMOGLOBIN 24.8 uug (24.7-32.8); MEAN CORPUSCULAR VOLUME 80.7 fL (75.5-95.3); PLATELET COUNT (AUTO) 305 K/uL (179-408)
[2021-01-10] MEDS: PANTOPRAZOLE SODIUM 40 MG TABLET.DR PO SCH (07:52)
[2021-01-10] MEDS: BLOOD SUGAR DIAGNOSTIC 1 EACH STRIP VI SCH ×4 (08:09→21:11)
[2021-01-10] MEDS: INSULIN REGULAR, HUMAN 300 UNIT/3 ML VIAL SQ PRN ×4 (08:25→21:12)
[2021-01-10] MEDS: DOCUSATE SODIUM 100 MG CAPSULE PO SCH ×2 (08:45→16:11)
[2021-01-10] MEDS: PIPERACILLIN SODIUM/TAZOBACTAM 3.375 G in IV DEXTROSE 5% 100 ML IV SCH ×2 (08:52→21:00)
[2021-01-10] MEDS: ISOSORBIDE MONONITRATE 30 MG TAB.SR.24H PO SCH (08:52)
[2021-01-10] MEDS: ACETAMINOPHEN 325 MG TABLET PO PRN (11:49)
[2021-01-10] MEDS: LORAZEPAM 2 MG/1 ML VIAL IV PRN ×2 (15:29→23:15)
[2021-01-10] MEDS ORDERED: SODIUM BICARBONATE 8.4% 150 MEQ in IV D5W 1000ML 1,000 ML IV SCH (16:00)
[2021-01-10] MEDS: ATORVASTATIN 20 MG TABLET PO SCH (20:39)
[2021-01-11] VITALS (22 sets, daily range): BP systolic 97–152; BP diastolic 58–104
[2021-01-11] MEDS: LEVALBUTEROL HCL 1.25 MG/0.5 ML NEB NEB SCH ×3 (03:49→11:26)
[2021-01-11 05:28] LABS: HEMATOCRIT 29.8 % (31.2-41.9); MEAN CORPUSCULAR HEMOGLOBIN 24.4 uug (24.7-32.8); MEAN CORPUSCULAR VOLUME 79.6 fL (75.5-95.3); PLATELET COUNT (AUTO) 342 K/uL (179-408)
[2021-01-11 05:43] LABS: CARBON DIOXIDE 18 mmol/L (21-32); CHLORIDE 99 mmol/L (98-107); GLUCOSE 275 mg/dL (74-106); MAGNESIUM 2.7 mg/dL (1.8-2.4); POTASSIUM 5.9 mmol/L (3.5-5.1)
[2021-01-11 05:46] LABS: UREA NITROGEN, BLOOD 105 mg/dL (7-18)
[2021-01-11 05:47] LABS: PHOSPHOROUS 8.5 mg/dL (2.5-4.9)
[2021-01-11 06:04] LABS: ABG HCO3 18.1 mmol/L; ABG PCO2 34.4 mmHg (35.0-45.0); ABG PH 7.338 (7.350-7.450); ABG PO2 117.9 mmHg (75.0-100.0); ABG SITE LEFT RADIAL; ABG TOTAL HEMOGLOBIN 9.9 G/dL (12.0-16.0); COHb 0.8 % (0.5-1.5); MetHb 0.2 % (0.0-1.5); O2Hb 97.6 % (94.0-97.0); VENT MODE Nasal Cannula
[2021-01-11] MEDS: PANTOPRAZOLE SODIUM 40 MG TABLET.DR PO SCH (06:52)
[2021-01-11] MEDS: methylPREDNISolone SOD SUCC 125 MG/2 ML VIAL IV SCH ×3 (06:53→21:48)
[2021-01-11] MEDS: IV NS 1000 ML 1,000 ML IV PRN ×2 (07:03→20:50)
[2021-01-11] MEDS: BLOOD SUGAR DIAGNOSTIC 1 EACH STRIP VI SCH ×4 (07:30→21:00)
[2021-01-11] MEDS ORDERED: FUROSEMIDE 40 MG/4 ML VIAL IV ONE (08:15)
[2021-01-11] MEDS: INSULIN REGULAR, HUMAN 300 UNIT/3 ML VIAL SQ PRN ×4 (08:50→22:06)
[2021-01-11] MEDS: PIPERACILLIN/TAZO 2.25 G in IV DEXTROSE 5% 50 ML IV SCH ×2 (08:59→17:29)
[2021-01-11] MEDS: DOCUSATE SODIUM 100 MG CAPSULE PO SCH ×3 (08:59→17:29)
[2021-01-11] MEDS: Z GUARD REMEDY PASTE 57 GM TUBE TOP SCH ×2 (09:00→20:52)
[2021-01-11] MEDS: ISOSORBIDE MONONITRATE 30 MG TAB.SR.24H PO SCH (09:00)
[2021-01-11] MEDS: LEVALBUTEROL HCL NEB 0.63 MG/3 ML NEBU NEB SCH ×2 (19:45→19:52)
[2021-01-11] MEDS: ATORVASTATIN 20 MG TABLET PO SCH (20:04)
[2021-01-11] MEDS: LORAZEPAM 2 MG/1 ML VIAL IV PRN (20:04)
[2021-01-12] VITALS (18 sets, daily range): BP systolic 121–149; BP diastolic 66–88
[2021-01-12] MEDS: ACETAMINOPHEN 325 MG TABLET PO PRN ×2 (00:27→10:13)
[2021-01-12] MEDS: LEVALBUTEROL HCL NEB 0.63 MG/3 ML NEBU NEB SCH ×4 (01:32→19:27)
[2021-01-12] MEDS: PIPERACILLIN/TAZO 2.25 G in IV DEXTROSE 5% 50 ML IV SCH ×3 (01:41→18:23)
[2021-01-12 05:05] LABS: HEMATOCRIT 29.2 % (31.2-41.9); MEAN CORPUSCULAR HEMOGLOBIN 24.3 uug (24.7-32.8); MEAN CORPUSCULAR VOLUME 79.9 fL (75.5-95.3); PLATELET COUNT (AUTO) 325 K/uL (179-408)
[2021-01-12 05:16] LABS: CARBON DIOXIDE 25 mmol/L (21-32); CHLORIDE 103 mmol/L (98-107); CREATININE 2.9 mg/dL (0.6-1.3); GLUCOSE 163 mg/dL (74-106); MAGNESIUM 2.5 mg/dL (1.8-2.4); PHOSPHOROUS 6.3 mg/dL (2.5-4.9); POTASSIUM 4.3 mmol/L (3.5-5.1); UREA NITROGEN, BLOOD 76 mg/dL (7-18)
[2021-01-12] MEDS: PANTOPRAZOLE SODIUM 40 MG TABLET.DR PO SCH (06:06)
[2021-01-12] MEDS: methylPREDNISolone SOD SUCC 125 MG/2 ML VIAL IV SCH ×3 (06:06→21:58)
[2021-01-12] MEDS: BLOOD SUGAR DIAGNOSTIC 1 EACH STRIP VI SCH ×4 (06:38→21:05)
[2021-01-12] MEDS: INSULIN REGULAR, HUMAN 300 UNIT/3 ML VIAL SQ PRN ×3 (06:41→17:23)
[2021-01-12] MEDS: ISOSORBIDE MONONITRATE 30 MG TAB.SR.24H PO SCH (08:53)
[2021-01-12] MEDS: DOCUSATE SODIUM 100 MG CAPSULE PO SCH ×2 (08:53→17:00)
[2021-01-12] MEDS: Z GUARD REMEDY PASTE 57 GM TUBE TOP SCH ×2 (08:55→20:59)
[2021-01-12] MEDS: GLUCERNA SHAKE VANILLA 237 ML CAN PO SCH (08:56)
[2021-01-12] MEDS: PROTEIN SUPPLEMENT (PROSTAT) 30 ML LIQUID PO SCH (08:56)
[2021-01-12] MEDS ORDERED: DEXTROSE 50% 50 ML DISP.SYRIN IV PRN (19:30)
[2021-01-12] MEDS: ATORVASTATIN 20 MG TABLET PO SCH (20:59)
[2021-01-12] MEDS: INSULIN REGULAR, HUMAN 300 UNITS/3 ML VIAL SQ PRN (21:06)
[2021-01-12] MEDS: LORAZEPAM 2 MG/1 ML VIAL IV PRN (22:44)
[2021-01-13 00:15] VITALS: BP 117/75
[2021-01-13] MEDS: PIPERACILLIN/TAZO 2.25 G in IV DEXTROSE 5% 50 ML IV SCH ×3 (00:26→17:21)
[2021-01-13] MEDS: LEVALBUTEROL HCL NEB 0.63 MG/3 ML NEBU NEB SCH ×4 (00:30→19:41)
[2021-01-13 04:30] VITALS: BP 139/85
[2021-01-13 04:35] VITALS: BP 128/81
[2021-01-13 06:34] LABS: HEMATOCRIT 29.8 % (31.2-41.9); MEAN CORPUSCULAR HEMOGLOBIN 25.3 uug (24.7-32.8); MEAN CORPUSCULAR VOLUME 80.3 fL (75.5-95.3); PLATELET COUNT (AUTO) 349 K/uL (179-408)
[2021-01-13] MEDS: methylPREDNISolone SOD SUCC 125 MG/2 ML VIAL IV SCH (06:36)
[2021-01-13] MEDS: BLOOD SUGAR DIAGNOSTIC 1 EACH STRIP VI SCH ×4 (06:45→22:01)
[2021-01-13 06:48] LABS: CARBON DIOXIDE 26 mmol/L (21-32); CHLORIDE 104 mmol/L (98-107); CREATININE 2.2 mg/dL (0.6-1.3); GLUCOSE 204 mg/dL (74-106); MAGNESIUM 2.3 mg/dL (1.8-2.4); PHOSPHOROUS 5.4 mg/dL (2.5-4.9); POTASSIUM 3.7 mmol/L (3.5-5.1); UREA NITROGEN, BLOOD 57 mg/dL (7-18)
[2021-01-13] MEDS ORDERED: FUROSEMIDE 40 MG/4 ML VIAL IV ONE (08:15)
[2021-01-13] MEDS: DOCUSATE SODIUM 100 MG CAPSULE PO SCH ×3 (09:00→17:00)
[2021-01-13] MEDS: PANTOPRAZOLE SODIUM 40 MG TABLET.DR PO SCH (09:20)
[2021-01-13] MEDS: ISOSORBIDE MONONITRATE 30 MG TAB.SR.24H PO SCH (09:25)
[2021-01-13] MEDS: GLUCERNA SHAKE VANILLA 237 ML CAN PO SCH ×2 (09:29→17:30)
[2021-01-13] MEDS: PROTEIN SUPPLEMENT (PROSTAT) 30 ML LIQUID PO SCH (09:29)
[2021-01-13] MEDS: INSULIN REGULAR, HUMAN 300 UNIT/3 ML VIAL SQ PRN ×4 (09:31→22:01)
[2021-01-13] MEDS: Z GUARD REMEDY PASTE 57 GM TUBE TOP SCH ×2 (09:58→21:08)
[2021-01-13 13:42] VITALS: BP 116/77
[2021-01-13 16:26] VITALS: BP 145/88
[2021-01-13] MEDS: LOPERAMIDE HCL 2 MG CAPSULE PO PRN (17:30)
[2021-01-13] MEDS: methylPREDNISolone SOD SUCC 40 MG/ML VIAL IV SCH (21:08)
[2021-01-13] MEDS: CULTURELLE CAPSULE PO SCH (21:08)
[2021-01-13] MEDS: ATORVASTATIN 20 MG TABLET PO SCH (21:08)
[2021-01-13] MEDS: LORAZEPAM 2 MG/1 ML VIAL IV PRN (21:10)
[2021-01-14 00:05] VITALS: BP 143/73
[2021-01-14] MEDS: LEVALBUTEROL HCL NEB 0.63 MG/3 ML NEBU NEB SCH ×4 (00:30→20:29)
[2021-01-14] MEDS: PIPERACILLIN/TAZO 2.25 G in IV DEXTROSE 5% 50 ML IV SCH ×3 (01:05→17:10)
[2021-01-14 04:20] VITALS: BP 127/80
[2021-01-14] MEDS: PANTOPRAZOLE SODIUM 40 MG TABLET.DR PO SCH (06:32)
[2021-01-14] MEDS: BLOOD SUGAR DIAGNOSTIC 1 EACH STRIP VI SCH ×4 (06:55→20:26)
[2021-01-14 07:14] LABS: HEMATOCRIT 32.5 % (31.2-41.9); MEAN CORPUSCULAR HEMOGLOBIN 24.9 uug (24.7-32.8); MEAN CORPUSCULAR VOLUME 80.4 fL (75.5-95.3); PLATELET COUNT (AUTO) 393 K/uL (179-408)
[2021-01-14 07:30] LABS: CARBON DIOXIDE 24 mmol/L (21-32); CHLORIDE 102 mmol/L (98-107); CREATININE 2.3 mg/dL (0.6-1.3); GLUCOSE 146 mg/dL (74-106); MAGNESIUM 2.1 mg/dL (1.8-2.4); PHOSPHOROUS 5.4 mg/dL (2.5-4.9); POTASSIUM 3.7 mmol/L (3.5-5.1)
[2021-01-14 07:56] LABS: UREA NITROGEN, BLOOD 84 mg/dL (7-18)
[2021-01-14] MEDS: methylPREDNISolone SOD SUCC 40 MG/ML VIAL IV SCH ×2 (08:56→20:16)
[2021-01-14] MEDS: INSULIN REGULAR, HUMAN 300 UNIT/3 ML VIAL SQ PRN ×3 (08:57→18:02)
[2021-01-14] MEDS: DOCUSATE SODIUM 100 MG CAPSULE PO SCH ×2 (09:00→17:00)
[2021-01-14] MEDS: CULTURELLE CAPSULE PO SCH ×2 (09:02→20:16)
[2021-01-14] MEDS: Z GUARD REMEDY PASTE 57 GM TUBE TOP SCH ×2 (09:07→21:35)
[2021-01-14] MEDS: ISOSORBIDE MONONITRATE 30 MG TAB.SR.24H PO SCH (09:07)
[2021-01-14] MEDS: GLUCERNA SHAKE VANILLA 237 ML CAN PO SCH ×2 (09:08→18:02)
[2021-01-14] MEDS: PROTEIN SUPPLEMENT (PROSTAT) 30 ML LIQUID PO SCH (09:08)
[2021-01-14 11:55] VITALS: BP 143/87
[2021-01-14] MEDS ORDERED: IV NORMAL SALINE 500 ML IV ONE (14:45)
[2021-01-14] MEDS: ACETAMINOPHEN 325 MG TABLET PO PRN ×2 (14:46→20:46)
[2021-01-14 16:00] VITALS: BP 131/68
[2021-01-14 20:12] VITALS: BP 133/66
[2021-01-14] MEDS: ATORVASTATIN 20 MG TABLET PO SCH (20:17)
[2021-01-14] MEDS: INSULIN REGULAR, HUMAN 300 UNITS/3 ML VIAL SQ PRN (20:27)
[2021-01-14] MEDS: LORAZEPAM 2 MG/1 ML VIAL IV PRN (21:34)
[2021-01-15] VITALS: BP 148/86
[2021-01-15] MEDS: PIPERACILLIN/TAZO 2.25 G in IV DEXTROSE 5% 50 ML IV SCH ×3 (00:18→17:14)
[2021-01-15] MEDS: LEVALBUTEROL HCL NEB 0.63 MG/3 ML NEBU NEB SCH ×4 (01:41→20:25)
[2021-01-15 04:12] VITALS: BP 146/77
[2021-01-15] MEDS: PANTOPRAZOLE SODIUM 40 MG TABLET.DR PO SCH (06:10)
[2021-01-15] MEDS: BLOOD SUGAR DIAGNOSTIC 1 EACH STRIP VI SCH ×4 (06:32→21:19)
[2021-01-15 06:54] LABS: HEMATOCRIT 32.9 % (31.2-41.9); MEAN CORPUSCULAR HEMOGLOBIN 24.8 uug (24.7-32.8); MEAN CORPUSCULAR VOLUME 80.1 fL (75.5-95.3); PLATELET COUNT (AUTO) 374 K/uL (179-408)
[2021-01-15 06:57] LABS: CARBON DIOXIDE 23 mmol/L (21-32); CHLORIDE 103 mmol/L (98-107); CREATININE 2.4 mg/dL (0.6-1.3); GLUCOSE 148 mg/dL (74-106); PHOSPHOROUS 6.2 mg/dL (2.5-4.9); POTASSIUM 3.8 mmol/L (3.5-5.1)
[2021-01-15 07:01] LABS: UREA NITROGEN, BLOOD 104 mg/dL (7-18)
[2021-01-15] MEDS: methylPREDNISolone SOD SUCC 40 MG/ML VIAL IV SCH (08:37)
[2021-01-15] MEDS: DOCUSATE SODIUM 100 MG CAPSULE PO SCH ×2 (08:39→17:00)
[2021-01-15] MEDS: ACETAMINOPHEN 325 MG TABLET PO PRN ×2 (09:05→21:09)
[2021-01-15] MEDS: Z GUARD REMEDY PASTE 57 GM TUBE TOP SCH ×2 (09:06→21:09)
[2021-01-15] MEDS: ISOSORBIDE MONONITRATE 30 MG TAB.SR.24H PO SCH (09:06)
[2021-01-15] MEDS: CULTURELLE CAPSULE PO SCH ×2 (09:06→21:09)
[2021-01-15] MEDS: GLUCERNA SHAKE VANILLA 237 ML CAN PO SCH ×2 (09:07→17:54)
[2021-01-15] MEDS: PROTEIN SUPPLEMENT (PROSTAT) 30 ML LIQUID PO SCH (09:08)
[2021-01-15] MEDS: INSULIN REGULAR, HUMAN 300 UNIT/3 ML VIAL SQ PRN ×3 (09:09→17:24)
[2021-01-15 11:00] VITALS: BP 125/64
[2021-01-15 16:00] VITALS: BP 136/77
[2021-01-15] MEDS: IV LACTATED RINGERS SOLUTION 1,000 ML IV PRN (17:22)
[2021-01-15 20:00] VITALS: BP 142/74
[2021-01-15] MEDS: ATORVASTATIN 20 MG TABLET PO SCH (21:09)
[2021-01-15] MEDS: INSULIN REGULAR, HUMAN 300 UNITS/3 ML VIAL SQ PRN (21:21)
[2021-01-15] MEDS: LORAZEPAM 2 MG/1 ML VIAL IV PRN (21:23)
[2021-01-16] VITALS: BP 137/69
[2021-01-16] MEDS: LEVALBUTEROL HCL NEB 0.63 MG/3 ML NEBU NEB SCH ×4 (00:17→21:28)
[2021-01-16] MEDS: PIPERACILLIN/TAZO 2.25 G in IV DEXTROSE 5% 50 ML IV SCH ×3 (00:55→16:19)
[2021-01-16 05:22] VITALS: BP 138/85
[2021-01-16] MEDS: PANTOPRAZOLE SODIUM 40 MG TABLET.DR PO SCH (06:20)
[2021-01-16] MEDS: BLOOD SUGAR DIAGNOSTIC 1 EACH STRIP VI SCH ×4 (06:40→20:50)
[2021-01-16 07:07] LABS: HEMATOCRIT 32.9 % (31.2-41.9); MEAN CORPUSCULAR HEMOGLOBIN 25.2 uug (24.7-32.8); MEAN CORPUSCULAR VOLUME 81.2 fL (75.5-95.3); PLATELET COUNT (AUTO) 343 K/uL (179-408)
[2021-01-16 07:19] LABS: CARBON DIOXIDE 27 mmol/L (21-32); CHLORIDE 106 mmol/L (98-107); CREATININE 1.9 mg/dL (0.6-1.3); GLUCOSE 67 mg/dL (74-106); MAGNESIUM 2.1 mg/dL (1.8-2.4); PHOSPHOROUS 4.6 mg/dL (2.5-4.9); POTASSIUM 3.3 mmol/L (3.5-5.1); UREA NITROGEN, BLOOD 74 mg/dL (7-18)
[2021-01-16 07:38] VITALS: BP 158/79
[2021-01-16] MEDS: ISOSORBIDE MONONITRATE 30 MG TAB.SR.24H PO SCH (08:49)
[2021-01-16] MEDS: methylPREDNISolone SOD SUCC 40 MG/ML VIAL IV SCH (08:50)
[2021-01-16] MEDS: CULTURELLE CAPSULE PO SCH ×2 (08:50→20:49)
[2021-01-16] MEDS: DOCUSATE SODIUM 100 MG CAPSULE PO SCH ×2 (09:00→16:19)
[2021-01-16] MEDS: Z GUARD REMEDY PASTE 57 GM TUBE TOP SCH ×2 (09:08→20:49)
[2021-01-16] MEDS: PROTEIN SUPPLEMENT (PROSTAT) 30 ML LIQUID PO SCH (09:08)
[2021-01-16] MEDS: GLUCERNA SHAKE VANILLA 237 ML CAN PO SCH ×2 (09:09→17:32)
[2021-01-16] MEDS: LORAZEPAM 2 MG/1 ML VIAL IV PRN ×2 (10:04→21:24)
[2021-01-16] MEDS: IV LACTATED RINGERS SOLUTION 1,000 ML IV PRN (11:18)
[2021-01-16 11:39] VITALS: BP 145/70
[2021-01-16] MEDS ORDERED: POTASSIUM CHLORIDE 20 MEQ TAB.PRT.SR PO ONE (12:00)
[2021-01-16] MEDS: INSULIN REGULAR, HUMAN 300 UNIT/3 ML VIAL SQ PRN ×2 (12:01→17:32)
[2021-01-16] MEDS ORDERED: POTASSIUM CHLORIDE 20 MEQ POWDER PACKET PO ONE (12:45)
[2021-01-16 16:00] VITALS: BP 116/65
[2021-01-16] MEDS: ACETAMINOPHEN 325 MG TABLET PO PRN (16:22)
[2021-01-16] MEDS ORDERED: FUROSEMIDE 40 MG/4 ML VIAL IV ONE (16:30)
[2021-01-16] MEDS ORDERED: METRONIDAZOLE 500 MG/NS 100ML 500 MG in PREMIXED 1 EACH IV SCH (17:00)
[2021-01-16] MEDS ORDERED: VANCOMYCIN IV 1,000 MG in IV DEXTROSE 5% 250 ML IV ONE (18:00)
[2021-01-16 20:17] VITALS: BP 144/75
[2021-01-16] MEDS: ATORVASTATIN 20 MG TABLET PO SCH (20:49)
[2021-01-16] MEDS: INSULIN REGULAR, HUMAN 300 UNITS/3 ML VIAL SQ PRN (20:51)
[2021-01-17 00:37] VITALS: BP 122/71
[2021-01-17] MEDS: PIPERACILLIN/TAZO 2.25 G in IV DEXTROSE 5% 50 ML IV SCH ×3 (00:58→17:07)
[2021-01-17] MEDS: LEVALBUTEROL HCL NEB 0.63 MG/3 ML NEBU NEB SCH ×4 (02:16→19:03)
[2021-01-17 04:52] VITALS: BP 105/56
[2021-01-17 06:24] LABS: HEMATOCRIT 28.9 % (31.2-41.9); MEAN CORPUSCULAR HEMOGLOBIN 24.9 uug (24.7-32.8); PLATELET COUNT (AUTO) 275 K/uL (179-408)
[2021-01-17 06:50] LABS: CARBON DIOXIDE 26 mmol/L (21-32); CHLORIDE 106 mmol/L (98-107); CREATININE 1.9 mg/dL (0.6-1.3); GLUCOSE 91 mg/dL (74-106); PHOSPHOROUS 5.2 mg/dL (2.5-4.9); POTASSIUM 4.2 mmol/L (3.5-5.1); VANCOMYCIN,RANDOM 12.7 ug/mL (18.0-26.0)
[2021-01-17] MEDS: PANTOPRAZOLE SODIUM 40 MG TABLET.DR PO SCH (07:00)
[2021-01-17 07:02] LABS: UREA NITROGEN, BLOOD 93 mg/dL (7-18)
[2021-01-17] MEDS: BLOOD SUGAR DIAGNOSTIC 1 EACH STRIP VI SCH ×4 (07:40→20:21)
[2021-01-17] MEDS: methylPREDNISolone SOD SUCC 40 MG/ML VIAL IV SCH (08:23)
[2021-01-17] MEDS: Z GUARD REMEDY PASTE 57 GM TUBE TOP SCH ×2 (08:32→20:06)
[2021-01-17] MEDS: PROTEIN SUPPLEMENT (PROSTAT) 30 ML LIQUID PO SCH (08:33)
[2021-01-17] MEDS: ISOSORBIDE MONONITRATE 30 MG TAB.SR.24H PO SCH (08:33)
[2021-01-17] MEDS: CULTURELLE CAPSULE PO SCH ×2 (08:33→20:04)
[2021-01-17] MEDS: DOCUSATE SODIUM 100 MG CAPSULE PO SCH ×2 (08:33→17:07)
[2021-01-17] MEDS: GLUCERNA SHAKE VANILLA 237 ML CAN PO SCH ×2 (08:33→17:07)
[2021-01-17] MEDS ORDERED: VANCOMYCIN IV 500 MG in IV DEXTROSE 5% 100 ML IV PRN (09:00)
[2021-01-17] MEDS ORDERED: VANCOMYCIN IV 750 MG in IV DEXTROSE 5% 250 ML IV ONE (11:00)
[2021-01-17] MEDS: INSULIN REGULAR, HUMAN 300 UNIT/3 ML VIAL SQ PRN ×2 (11:58→17:13)
[2021-01-17 12:00] VITALS: BP 128/68
[2021-01-17] MEDS: LOPERAMIDE HCL 2 MG CAPSULE PO PRN ×2 (12:18→20:04)
[2021-01-17] MEDS: ACETAMINOPHEN 325 MG TABLET PO PRN (13:10)
[2021-01-17 16:00] VITALS: BP 115/73
[2021-01-17 17:47] LABS: *OCCULT BLOOD STOOL NEGATIVE (NEGATIVE)
[2021-01-17] MEDS: ATORVASTATIN 20 MG TABLET PO SCH (20:05)
[2021-01-17] MEDS: INSULIN REGULAR, HUMAN 300 UNITS/3 ML VIAL SQ PRN (20:18)
[2021-01-17 20:21] VITALS: BP 128/63
[2021-01-17] MEDS: LORAZEPAM 2 MG/1 ML VIAL IV PRN (21:57)
[2021-01-18 00:09] VITALS: BP 132/70
[2021-01-18 00:12] LABS: *BILIRUBIN,URIN NEGATIVE (NEGATIVE); *BLOOD, URINE 3+ (NEGATIVE); *COLOR,URINE YELLOW (YELLOW); *KETONES,URINE NEGATIVE (NEGATIVE); *UROBILINOGEN,URINE 0.2 E.U./dl (NORMAL); LEUKOCYTE ESTERASE ,URINE TRACE (NEGATIVE); NITRITE, URINE NEGATIVE (NEGATIVE); UGLUCOSE NEGATIVE (NEGATIVE)
[2021-01-18 00:17] LABS: *CLARITY,URINE HAZY (CLEAR)
[2021-01-18 00:20] LABS: BACTERIA,URINE NONE SEEN /HPF (NONE SEEN); SQUAMOUS EPITHELIAL CELL,UR FEW /HPF (NONE SEEN); YEAST,URINE MANY /HPF (NONE SEEN)
[2021-01-18] MEDS: LEVALBUTEROL HCL NEB 0.63 MG/3 ML NEBU NEB SCH ×4 (00:30→19:23)
[2021-01-18] MEDS: PIPERACILLIN/TAZO 2.25 G in IV DEXTROSE 5% 50 ML IV SCH ×3 (01:02→16:18)
[2021-01-18 04:48] VITALS: BP 129/80
[2021-01-18] MEDS: BLOOD SUGAR DIAGNOSTIC 1 EACH STRIP VI SCH ×4 (06:06→20:34)
[2021-01-18] MEDS: PANTOPRAZOLE SODIUM 40 MG TABLET.DR PO SCH (06:06)
[2021-01-18 06:21] LABS: HEMATOCRIT 31.2 % (31.2-41.9); MEAN CORPUSCULAR HEMOGLOBIN 24.9 uug (24.7-32.8); MEAN CORPUSCULAR VOLUME 83.1 fL (75.5-95.3); PLATELET COUNT (AUTO) 291 K/uL (179-408)
[2021-01-18 06:37] LABS: CARBON DIOXIDE 25 mmol/L (21-32); CHLORIDE 106 mmol/L (98-107); CREATININE 2.2 mg/dL (0.6-1.3); GLUCOSE 84 mg/dL (74-106); MAGNESIUM 2.3 mg/dL (1.8-2.4); PHOSPHOROUS 5.9 mg/dL (2.5-4.9); POTASSIUM 4.7 mmol/L (3.5-5.1)
[2021-01-18 06:44] LABS: UREA NITROGEN, BLOOD 104 mg/dL (7-18)
[2021-01-18] MEDS: methylPREDNISolone SOD SUCC 40 MG/ML VIAL IV SCH (08:03)
[2021-01-18] MEDS: Z GUARD REMEDY PASTE 57 GM TUBE TOP SCH ×2 (08:04→20:43)
[2021-01-18] MEDS: ISOSORBIDE MONONITRATE 30 MG TAB.SR.24H PO SCH (08:04)
[2021-01-18] MEDS: GLUCERNA SHAKE VANILLA 237 ML CAN PO SCH ×2 (08:04→16:26)
[2021-01-18] MEDS: CULTURELLE CAPSULE PO SCH ×2 (08:04→20:27)
[2021-01-18] MEDS: DOCUSATE SODIUM 100 MG CAPSULE PO SCH ×2 (08:05→16:16)
[2021-01-18] MEDS: PROTEIN SUPPLEMENT (PROSTAT) 30 ML LIQUID PO SCH (08:05)
[2021-01-18] MEDS: LOPERAMIDE HCL 2 MG CAPSULE PO PRN (08:38)
[2021-01-18 11:44] VITALS: BP 142/74
[2021-01-18] MEDS ORDERED: VANCOMYCIN IV 1,000 MG in IV DEXTROSE 5% 250 ML IV ONE (14:30)
[2021-01-18 15:45] VITALS: BP 129/58
[2021-01-18] MEDS: INSULIN REGULAR, HUMAN 300 UNIT/3 ML VIAL SQ PRN (16:24)
[2021-01-18] MEDS: ACETAMINOPHEN 325 MG TABLET PO PRN (16:27)
[2021-01-18 20:00] VITALS: BP 121/50
[2021-01-18] MEDS: ATORVASTATIN 20 MG TABLET PO SCH (20:27)
[2021-01-18] MEDS: INSULIN REGULAR, HUMAN 300 UNITS/3 ML VIAL SQ PRN (20:40)
[2021-01-18] MEDS: LORAZEPAM 2 MG/1 ML VIAL IV PRN (23:08)
[2021-01-19] VITALS: BP 124/69
[2021-01-19] MEDS: LEVALBUTEROL HCL NEB 0.63 MG/3 ML NEBU NEB SCH ×4 (00:30→20:57)
[2021-01-19 04:00] VITALS: BP 125/70
[2021-01-19] MEDS: PANTOPRAZOLE SODIUM 40 MG TABLET.DR PO SCH (06:28)
[2021-01-19] MEDS: BLOOD SUGAR DIAGNOSTIC 1 EACH STRIP VI SCH ×4 (06:31→20:01)
[2021-01-19 06:32] LABS: MEAN CORPUSCULAR HEMOGLOBIN 25.5 uug (24.7-32.8); MEAN CORPUSCULAR VOLUME 82.2 fL (75.5-95.3); PLATELET COUNT (AUTO) 295 K/uL (179-408)
[2021-01-19 06:55] LABS: ALANINE AMINOTRANSFERASE 15 U/L (14-59); ALKALINE PHOSPHATASE 69 U/L (50-136); ASPARTATE AMINOTRANSFERASE 15 U/L (15-37); BILIRUBIN,TOTAL 0.5 mg/dL (0.2-1.0); CARBON DIOXIDE 26 mmol/L (21-32); CHLORIDE 106 mmol/L (98-107); GLUCOSE 102 mg/dL (74-106); MAGNESIUM 2.1 mg/dL (1.8-2.4); PHOSPHOROUS 4.7 mg/dL (2.5-4.9); POTASSIUM 4.7 mmol/L (3.5-5.1); TOTAL PROTEIN, SERUM 5.5 g/dL (6.4-8.2)
[2021-01-19 06:57] LABS: UREA NITROGEN, BLOOD 95 mg/dL (7-18)
[2021-01-19 07:57] VITALS: BP 135/72
[2021-01-19 08:06] LABS: HEPATITIS A AB, IgM Negative (Negative); HEPATITIS A AB, TOTAL Positive (Negative); HEPATITIS B SURFACE AG Negative (Negative)
[2021-01-19] MEDS: DOCUSATE SODIUM 100 MG CAPSULE PO SCH ×2 (08:12→17:02)
[2021-01-19] MEDS: methylPREDNISolone SOD SUCC 40 MG/ML VIAL IV SCH (08:14)
[2021-01-19] MEDS: ISOSORBIDE MONONITRATE 30 MG TAB.SR.24H PO SCH (08:14)
[2021-01-19] MEDS: CULTURELLE CAPSULE PO SCH ×2 (08:14→20:00)
[2021-01-19] MEDS: GLUCERNA SHAKE VANILLA 237 ML CAN PO SCH ×2 (08:15→17:04)
[2021-01-19] MEDS: PROTEIN SUPPLEMENT (PROSTAT) 30 ML LIQUID PO SCH (08:22)
[2021-01-19] MEDS: Z GUARD REMEDY PASTE 57 GM TUBE TOP SCH ×2 (08:27→20:03)
[2021-01-19] MEDS ORDERED: FUROSEMIDE 20 MG/2 ML VIAL IV ONE (11:00)
[2021-01-19 12:00] VITALS: BP 140/78
[2021-01-19 16:00] VITALS: BP 133/74
[2021-01-19] MEDS: INSULIN REGULAR, HUMAN 300 UNIT/3 ML VIAL SQ PRN (16:56)
[2021-01-19 20:00] VITALS: BP 141/63
[2021-01-19] MEDS: ATORVASTATIN 20 MG TABLET PO SCH (20:00)
[2021-01-19] MEDS: ACETAMINOPHEN 325 MG TABLET PO PRN (20:00)
[2021-01-19] MEDS: INSULIN REGULAR, HUMAN 300 UNITS/3 ML VIAL SQ PRN (20:02)
[2021-01-19] MEDS ORDERED: FLUCONAZOLE 100 MG TABLET PO SCH (21:00)
[2021-01-19] MEDS: LORAZEPAM 2 MG/1 ML VIAL IV PRN (21:06)
[2021-01-19] MEDS: LOPERAMIDE HCL 2 MG CAPSULE PO PRN (21:40)
[2021-01-20] VITALS: BP 145/80
[2021-01-20] MEDS: LEVALBUTEROL HCL NEB 0.63 MG/3 ML NEBU NEB SCH ×5 (01:49→20:25)
[2021-01-20 04:00] VITALS: BP 140/77
[2021-01-20] MEDS: PANTOPRAZOLE SODIUM 40 MG TABLET.DR PO SCH (06:09)
[2021-01-20] MEDS: BLOOD SUGAR DIAGNOSTIC 1 EACH STRIP VI SCH ×4 (06:11→21:29)
[2021-01-20 06:24] LABS: HEMATOCRIT 28.3 % (31.2-41.9); MEAN CORPUSCULAR HEMOGLOBIN 25.2 uug (24.7-32.8); PLATELET COUNT (AUTO) 261 K/uL (179-408)
[2021-01-20] MEDS ORDERED: HEPARIN SODIUM,PORCINE 1,000 UNITS/ML VIAL ONE (06:47)
[2021-01-20] MEDS ORDERED: HEPARIN/NS 500 ML ONE (06:47)
[2021-01-20] MEDS ORDERED: IOPAMIDOL 15 ML VIAL IT ONE (06:47)
[2021-01-20] MEDS ORDERED: LIDOCAINE HCL 1% 20 ML VIAL ONE (06:47)
[2021-01-20 06:50] LABS: CARBON DIOXIDE 24 mmol/L (21-32); CHLORIDE 106 mmol/L (98-107); CREATININE 1.9 mg/dL (0.6-1.3); GLUCOSE 129 mg/dL (74-106); MAGNESIUM 2.1 mg/dL (1.8-2.4); PHOSPHOROUS 4.6 mg/dL (2.5-4.9); POTASSIUM 4.6 mmol/L (3.5-5.1)
[2021-01-20 06:55] LABS: UREA NITROGEN, BLOOD 99 mg/dL (7-18)
[2021-01-20] MEDS ORDERED: CEFAZOLIN 1 G VIAL IM ONE (07:40)
[2021-01-20] MEDS ORDERED: SEVOFLURANE 250 ML BOTTLE IH ONE (07:40)
[2021-01-20] MEDS ORDERED: DEXAMETHASONE SOD PHOSPHATE 4 MG INJ IV ONE (07:40)
[2021-01-20] MEDS ORDERED: IV NORMAL SALINE 1000 ML BAG IV ONE (07:40)
[2021-01-20] MEDS ORDERED: ONDANSETRON 4 MG/2 ML VIAL IV ONE (07:40)
[2021-01-20] MEDS: CULTURELLE CAPSULE PO SCH ×2 (08:46→21:22)
[2021-01-20] MEDS: DOCUSATE SODIUM 100 MG CAPSULE PO SCH ×2 (08:46→16:35)
[2021-01-20] MEDS: methylPREDNISolone SOD SUCC 40 MG/ML VIAL IV SCH (08:49)
[2021-01-20] MEDS: ISOSORBIDE MONONITRATE 30 MG TAB.SR.24H PO SCH (08:49)
[2021-01-20] MEDS: METOPROLOL SUCCINATE XL 25 MG TAB.SR.24H PO SCH (08:49)
[2021-01-20] MEDS: GLUCERNA SHAKE VANILLA 237 ML CAN PO SCH ×2 (08:50→17:01)
[2021-01-20] MEDS: PROTEIN SUPPLEMENT (PROSTAT) 30 ML LIQUID PO SCH (08:50)
[2021-01-20] MEDS: Z GUARD REMEDY PASTE 57 GM TUBE TOP SCH ×2 (08:50→21:23)
[2021-01-20] MEDS: MORPHINE SULFATE 2 MG/1 ML DISP.SYRIN IV PRN (08:51)
[2021-01-20] MEDS: INSULIN REGULAR, HUMAN 300 UNIT/3 ML VIAL SQ PRN ×2 (11:42→17:00)
[2021-01-20] MEDS: LOPERAMIDE HCL 2 MG CAPSULE PO PRN (11:51)
[2021-01-20] MEDS: ACETAMINOPHEN 325 MG TABLET PO PRN (11:51)
[2021-01-20 12:00] VITALS: BP 116/78
[2021-01-20 16:00] VITALS: BP 145/71
[2021-01-20 20:30] VITALS: BP 141/66
[2021-01-20] MEDS: ATORVASTATIN 20 MG TABLET PO SCH (21:22)
[2021-01-20] MEDS: VORICONAZOLE 200 MG TABLET PO SCH (21:23)
[2021-01-20] MEDS: INSULIN REGULAR, HUMAN 300 UNITS/3 ML VIAL SQ PRN (21:32)
[2021-01-21 00:20] VITALS: BP 124/68
[2021-01-21] MEDS: LEVALBUTEROL HCL NEB 0.63 MG/3 ML NEBU NEB SCH ×3 (00:24→14:19)
[2021-01-21] MEDS: LORAZEPAM 2 MG/1 ML VIAL IV PRN (01:42)
[2021-01-21 04:25] VITALS: BP 106/76
[2021-01-21] MEDS: PANTOPRAZOLE SODIUM 40 MG TABLET.DR PO SCH (06:05)
[2021-01-21] MEDS: BLOOD SUGAR DIAGNOSTIC 1 EACH STRIP VI SCH ×2 (06:09→12:15)
[2021-01-21 07:01] LABS: HEMATOCRIT 27.6 % (31.2-41.9); MEAN CORPUSCULAR HEMOGLOBIN 25.6 uug (24.7-32.8); MEAN CORPUSCULAR VOLUME 82.3 fL (75.5-95.3); PLATELET COUNT (AUTO) 274 K/uL (179-408)
[2021-01-21 07:23] LABS: ALANINE AMINOTRANSFERASE 10 U/L (14-59); ALKALINE PHOSPHATASE 75 U/L (50-136); ASPARTATE AMINOTRANSFERASE 18 U/L (15-37); BILIRUBIN,TOTAL 0.6 mg/dL (0.2-1.0); CARBON DIOXIDE 27 mmol/L (21-32); CHLORIDE 105 mmol/L (98-107); CREATININE 1.4 mg/dL (0.6-1.3); GLUCOSE 97 mg/dL (74-106); MAGNESIUM 2.2 mg/dL (1.8-2.4); PHOSPHOROUS 4.1 mg/dL (2.5-4.9); POTASSIUM 4.2 mmol/L (3.5-5.1); TOTAL PROTEIN, SERUM 5.6 g/dL (6.4-8.2); UREA NITROGEN, BLOOD 72 mg/dL (7-18)
[2021-01-21] MEDS: METOPROLOL SUCCINATE XL 25 MG TAB.SR.24H PO SCH (08:44)
[2021-01-21] MEDS: CULTURELLE CAPSULE PO SCH (08:44)
[2021-01-21] MEDS: ISOSORBIDE MONONITRATE 30 MG TAB.SR.24H PO SCH (08:44)
[2021-01-21] MEDS: DOCUSATE SODIUM 100 MG CAPSULE PO SCH (08:44)
[2021-01-21] MEDS: Z GUARD REMEDY PASTE 57 GM TUBE TOP SCH (08:46)
[2021-01-21] MEDS: VORICONAZOLE 200 MG TABLET PO SCH (08:46)
[2021-01-21] MEDS: GLUCERNA SHAKE VANILLA 237 ML CAN PO SCH (08:46)
[2021-01-21] MEDS: PROTEIN SUPPLEMENT (PROSTAT) 30 ML LIQUID PO SCH (08:46)
[2021-01-21] MEDS ORDERED: methylPREDNISolone SOD SUCC 40 MG/ML VIAL IV SCH (09:00)
[2021-01-21] MEDS ORDERED: FUROSEMIDE 40 MG/4 ML VIAL IV ONE (09:15)
[2021-01-21] MEDS ORDERED: METO-356 PO (10:52)
[2021-01-21] MEDS ORDERED: VORI200T PO (10:52)
[2021-01-21] MEDS ORDERED: LACT1CAP57 PO (10:52)
[2021-01-21] MEDS ORDERED: PRED20TA PO (10:52)
[2021-01-21 11:48] VITALS: BP 150/89
[2021-01-21] MEDS: INSULIN REGULAR, HUMAN 300 UNIT/3 ML VIAL SQ PRN (12:18)
[2021-01-21 15:00] VITALS: BP 107/62
[2021-01-22] MEDS ORDERED: FOLIC ACID/VITAMIN B COMP W-C TABLET PO SCH (09:00)
== END 2021-01-21 15:20 | DRG 871 ==
LOC: ER 00:58 → CCU 06:49 → TELE3 19:15 → CCU 01-10 01:05 → TELE3 01-12 19:45
PROVIDERS: ADMIT Internal Medicine; ATTEND Hospitalist
PROC: 5A09357 Assistance with Respiratory Ventilation, Less than 24 Consecutive Hours, Continuous Positive Airway Pressure (ICD-10-PCS; principal; 2021-01-06)
PROC: 06HM33Z Insertion of Infusion Device into Right Femoral Vein, Percutaneous Approach (ICD-10-PCS; 2021-01-11)
PROC: B54BZZA Ultrasonography of Right Lower Extremity Veins, Guidance (ICD-10-PCS; 2021-01-11)
PROC: 5A1D70Z Performance of Urinary Filtration, Intermittent, Less than 6 Hours Per Day (ICD-10-PCS; 2021-01-11)
PROC: 0JH63XZ Insertion of Tunneled Vascular Access Device into Chest Subcutaneous Tissue and Fascia, Percutaneous Approach (ICD-10-PCS; 2021-01-20)
PROC: 02HV33Z Insertion of Infusion Device into Superior Vena Cava, Percutaneous Approach (ICD-10-PCS; 2021-01-20)
PROC: B518YZA Fluoroscopy of Superior Vena Cava using Other Contrast, Guidance (ICD-10-PCS; 2021-01-20)
DX: A41.9 Sepsis, unspecified organism (principal); J96.01 Acute respiratory failure with hypoxia; N17.0 Acute kidney failure with tubular necrosis; G93.41 Metabolic encephalopathy; I62.00 Nontraumatic subdural hemorrhage, unspecified; E43 Unspecified severe protein-calorie malnutrition; I50.33 Acute on chronic diastolic (congestive) heart failure; I62.03 Nontraumatic chronic subdural hemorrhage; I13.0 Hypertensive heart and chronic kidney disease with heart failure and stage 1 through stage 4 chronic kidney disease, or unspecified chronic kidney disease; E87.1 Hypo-osmolality and hyponatremia; E87.2 Acidosis; J90 Pleural effusion, not elsewhere classified; F03.91 Unspecified dementia, unspecified severity, with behavioral disturbance; B37.49 Other urogenital candidiasis; N18.9 Chronic kidney disease, unspecified; Z86.16 Personal history of COVID-19; E78.5 Hyperlipidemia, unspecified; E83.39 Other disorders of phosphorus metabolism; E11.22 Type 2 diabetes mellitus with diabetic chronic kidney disease; E86.9 Volume depletion, unspecified; E87.5 Hyperkalemia; I25.10 Atherosclerotic heart disease of native coronary artery without angina pectoris; D63.8 Anemia in other chronic diseases classified elsewhere; M48.02 Spinal stenosis, cervical region; M19.90 Unspecified osteoarthritis, unspecified site; Z86.73 Personal history of transient ischemic attack (TIA), and cerebral infarction without residual deficits; Z79.84 Long term (current) use of oral hypoglycemic drugs; I35.0 Nonrheumatic aortic (valve) stenosis; Z74.01 Bed confinement status; Z96.653 Presence of artificial knee joint, bilateral; Z86.011 Personal history of benign neoplasm of the brain; K57.30 Diverticulosis of large intestine without perforation or abscess without bleeding; K44.9 Diaphragmatic hernia without obstruction or gangrene; E88.09 Other disorders of plasma-protein metabolism, not elsewhere classified; Z20.822 Contact with and (suspected) exposure to COVID-19
CPT/HCPCS: 36415; 36600; 51702; 70030-TC; 70450; 71045; 71275; 76770; 83605; 83735; 84100; 84443; 84481; 85025; 85610; 85730; 86705; 86708; 86709; 86803; 87040; 87086; 87340; 90937; 93005; 93307; 93880; 94640; 94660; 94664; A4217; A4649; A4663; C9113; G0378; J0690; J0692; J1100; J1630; J1644; J1650; J1815; J1940; J1956; J2060; J2150; J2270; J2405; J2543; J2920; J2930; J3370; J3475; J3490; J7030; J7040; J7050; J7060; J7070; J7120; J7614; Q9967